=== PATIENT | female | born 1980 | race American Indian/Alaskan Native ===

== ENCOUNTER 2017-06-02 19:23 | Emergency (ER) | payer OTHER ==
[2017-06-02 19:52] VITALS: TEMP 98.4; O2SAT 98; BMI 37.5
--- NOTE | 2017-06-02 20:59 | ED PDOC ---
Arrival/HPI - General Chief Complaint: Lower Extremity Problem/Injury Time Seen by Provider: 06/02/17 19:49 Historian: Patient - History of Present Illness Narrative History of Present Illness (Text): 06/02/17 20:56 37 yo F with pmh of only HTN, reports of atraumatic constant achy type pain to the L calf radiating to the thigh x 1 week. Otherwise: (-) trauma, (-) chest pain, (-) dyspnea, (-) hemoptysis, (-) prior thromboembolic disease, (-) prolonged immobility or travel, (-) CHF, (-) known malignancy, (-) OCP use, (-) smoking. PMD Brenna Past Medical History - Provider Review Nursing Documentation Reviewed: Yes - Tetanus Immunization Tetanus Immunization: Unknown - Cardiac Hx Cardiac Disorders: Yes Hx Hypertension: Yes - Musculoskeletal/Rheumatological Hx Musculoskeletal Disorders: Yes (TORN RIGHT SHOULDER ROTATOR CUFF) - Genitourinary/Gynecological Hx Genitourinary Disorders: No - Psychiatric Hx Substance Use: No - Surgical History Other/Comment: ovarian cyst-REMOVED - Anesthesia Hx Anesthesia: Yes Hx Anesthesia Reactions: No Hx Malignant Hyperthermia: No - Suicidal Assessment Feels Threatened In Home Enviroment: No Family/Social History - Physician Review Nursing Documentation Reviewed: Yes Family/Social History: Unknown Family HX Smoking Status: Never Smoked Hx Alcohol Use: No Hx Substance Use: No Hx Substance Use Treatment: No Allergies/Home Meds Allergies/Adverse Reactions: Allergies No Known Allergies Allergy (Verified 08/20/14 13:39) Home Medications: Home Meds Medication Instructions Recorded Confirmed Benicar Hct 12.5 mg-20 mg 1 tab PO DAILY 11/04/13 06/02/17 Review of Systems - Review of Systems Constitutional: Normal. absent: Fatigue, Weight Change, Fevers Respiratory: Normal. absent: SOB, Cough, Sputum Cardiovascular: Normal. absent: Chest Pain, Palpitations, Edema Musculoskeletal: Normal, Other (leg pain). absent: Arthralgias, Back Pain, Neck Pain Skin: Normal. absent: Rash, Pruritis, Skin Lesions Physical Exam - Physical Exam Narrative Physical Exam (Text): 06/02/17 20:59 GENERAL APPEARANCE: Patient is awake, alert, oriented x 3, in no acute distress. SKIN: Warm, dry; (-) cyanosis; (-) rash. HEAD: (-) scalp swelling, (-) tenderness. EYES: (-) conjunctival pallor, (-) scleral icterus. ENMT: Pharynx: (-) erythema; airway patent: (-) stridor; mucous membranes moist. NECK: (-) tenderness, (-) stiffness, (-) lymphadenopathy, (-) thyromegaly. CHEST AND RESPIRATORY: (-) rales, (-) rhonchi, (-) wheezes, (-) pleural friction rub; breath sounds equal bilaterally. HEART AND CARDIOVASCULAR: (-) irregularity; (-) murmur, (-) gallop, (-) pericardial rub. ABDOMEN AND GI: Soft; (-) tenderness, (-) guarding, (-) rebound, (-) palpable masses, (-) CVA tenderness. EXTREMITIES: (-) swelling and tenderness with (-) distal edema, and (-) palpable cord. Opposite leg: wnl. Distal pulses: 2+. NEURO AND PSYCH: Mental status as above. Cranial nerves grossly intact; strength symmetric. Vital Signs Temp Pulse Resp BP Pulse Ox 06/02/17 21:21 75 18 144/86 98 06/02/17 19:52 98.4 F 78 16 146/98 H 98 Medical Decision Making ED Course and Treatment: 06/02/17 20:59 37 yo F with pmh of only HTN, reports of atraumatic constant achy type pain to the L calf radiating to the thigh x 1 week. Plan: -- Labs -- IV -- Reassess and disposition -- US doppler LLE 06/02/17 21:07 Labs reviewed : K 3.5. US duplex LLE : (-) DVT, as per US tech. On reevaluation, the patient is resting in bed comfortably in no acute distress. She has no additional complaints at this time. Patient given KCl 40 mEq by mouth for her mild hypokalemia. Diagnosis of muscle spasms discussed with the patient. Based on history, exam and diagnostic results plan will be for outpatient follow-up. Instructed to follow up with primary care physician in 1-2 days without fail. Advised to take otc motrin for pain. Return to the emergency room at any time for any new or worsening symptoms. Patient states she fully agrees with and understands discharge instructions. States that she agrees with the plan and disposition. Verbalized and repeated discharge instructions and plan. I have given the patient opportunity to ask any additional questions. - Lab Interpretations Lab Results: 06/02/17 20:45 06/02/17 20:45 Lab Results 06/02/17 20:45: Sodium 141, Potassium 3.5 L, Chloride 101, Carbon Dioxide 30, Anion Gap 14, BUN 18, Creatinine 0.8, Est GFR ( Amer) > 60, Est GFR (Non- Af Amer) > 60, Random Glucose 101, Calcium 9.0, Total Bilirubin 0.3, AST 45 H, ALT 29, Alkaline Phosphatase 69, Total Protein 7.7, Albumin 4.3, Globulin 3.4, Albumin/Globulin Ratio 1.3 06/02/17 20:45: PT 12.1, INR 1.11 H, APTT 32.1 06/02/17 20:45: WBC 9.1, RBC 4.45, Hgb 12.5, Hct 37.7, MCV 84.7, MCH 28.1, MCHC 33.2, RDW 14.5, Plt Count 376, MPV 9.5, Gran % 43.2 L, Lymph % (Auto) 48.2 H, [place] % (Auto) 5.8, Eos % (Auto) 2.2, Baso % (Auto) 0.6, Gran # 3.93, Lymph # 4.4 H, [place] # 0.5, Eos # 0.2, Baso # 0.05 - RAD Interpretation Radiology Orders: 06/02/17 20:32 DUPLEX LOWER EXTRM VEIN LEFT [US] Stat - Medication Orders Current Medication Orders: Discontinued Medications Potassium Chloride (Potassium Chloride Oral Soln) 40 meq PO STAT STA Stop: 06/02/17 21:09 - PA / CARDIAC REHAB NURSE / Resident Statement MD/DO has reviewed & agrees with the documentation as recorded. Disposition/Present on Arrival - Present on Arrival Any Indicators Present on Arrival: No History of DVT/PE: No History of Uncontrolled Diabetes: No Urinary Catheter: No History of Decub. Ulcer: No History Surgical Site Infection Following: None - Disposition Have Diagnosis and Disposition been Completed?: Yes Diagnosis: Pain of left calf Disposition: HOME/ ROUTINE Disposition Time: 21:45 Patient Plan: Discharge Patient Problems: Current Active Problems Problem Status Onset Pain of left calf Acute Condition: STABLE Discharge Instructions (ExitCare): Leg Cramps (ED) Print Language: GABONESE Additional Instructions: Thank you for letting us take care of you today. You were treated for L calf pain - likely muscle cramps/spams. The emergency medical care you received today was directed at your acute symptoms. If you were prescribed any medication , please fill it and take as directed. It may take several days for your symptoms to resolve. Return to the Emergency Department if your symptoms worsen , do not improve, or if you have any other problems. Please contact your doctor in 2 days for re-evaluation and follow up. Bring any paperwork you were given at discharge with you along with any medications you are taking to your follow up visit. Our treatment cannot replace ongoing medical care by a primary care provider (PCP) outside of the emergency department. Thank you for allowing the [facility] team to be part of your care today. Referrals: Suleiman Ugalde MD [Primary Care Provider] - Follow up with primary Forms: Cuciniale (Anguillan)
[2017-06-02 21:02] LABS: BASO # 0.05 K/mm3 (0.0-2.0); BASO % 0.6 % (0.0-3.0); EOS # 0.2 (0.0-0.7); EOS % 2.2 % (1.5-5.0); GRAN # 3.93 (1.4-6.5); GRAN % 43.2 % (50.0-68.0); HEMATOCRIT 37.7 % (36.0-48.0); LYMPH # 4.4 (1.2-3.4); LYMPH % 48.2 % (22.0-35.0); MEAN CELL VOLUME 84.7 fl (80.0-105.0); MEAN CORPUSCULAR HEMOGLOBIN 28.1 pg (25.0-35.0); MEAN CORPUSCULAR HGB CONC 33.2 g/dl (31.0-37.0); MEAN PLATELET VOLUME 9.5 fl (7.0-11.0); MONO # 0.5 (0.1-0.6); MONO % 5.8 % (1.0-6.0); RED CELL DISTRIBUTION WIDTH 14.5 % (11.5-14.5); WHITE BLOOD COUNT 9.1 10^3/ul (4.5-11.0)
[2017-06-02 21:04] LABS: ALB/GLOB RATIO 1.3 (1.1-1.8); ALKALINE PHOSPHATASE 69 U/L (38-126); ALT/SGPT 29 U/L (7-56); AST/SGOT 45 U/L (14-36); BILIRUBIN,TOTAL 0.3 mg/dL (0.2-1.3); BLOOD UREA NITROGEN 18 mg/dL (7-21); CARBON DIOXIDE 30 mmol/L (21-33); CHLORIDE 101 mmol/L (98-107); GFR AFRICAN-AMERICAN > 60; GLUCOSE,RANDOM 101 mg/dL (70-110); POTASSIUM 3.5 mmol/L (3.6-5.0); SODIUM 141 mmol/L (132-148); TOTAL PROTEIN 7.7 g/dL (5.8-8.3)
[2017-06-02 21:07] LABS: INR 1.11 (0.93-1.08); PARTIAL THROMBOPLASTIN TIME 32.1 Seconds (25.1-36.5)
[2017-06-02] MEDS ORDERED: Potassium Chloride 40 mEq/30 ml LIQ UD PO STA (21:08)
[2017-06-02 21:22] VITALS: BP 144/86; PULSE 75; RESP 18
--- NOTE | 2017-06-03 09:38 | US ---
PROCEDURE: Left lower extremity venous US HISTORY: Leg pain and swelling. Evaluate for DVT. PHYSICIAN(S): Kenton Brannon MD. TECHNIQUE: Duplex sonography and color-flow Doppler with graded compression were used to evaluate the deep venous system of the left lower extremity. FINDINGS: The visualized deep venous system of the left lower extremity is sonographically normal and compressible. Normal wave forms and augmentation are seen. There is no sonographic evidence for deep venous thrombosis in the visualized segments of the left lower extremity. IMPRESSION: 1. No sonographic evidence for deep venous thrombosis in the visualized segments of the left lower extremity.
== END 2017-06-02 22:01 | disposition home or self-care (01) ==
LOC: ED 19:23
DX: M79.662 Pain in left lower leg (principal)
CPT/HCPCS: 80053; 85025; 85610; 85730; 93971; 99284; J3480

== ENCOUNTER 2017-09-25 11:40 | Observation (INO) | payer OTHER ==
[2017-09-25 12:11] VITALS: BMI 38.2
--- NOTE | 2017-09-25 12:41 | ED PDOC ---
Arrival/HPI - General Chief Complaint: Abdominal Pain Time Seen by Provider: 09/25/17 12:28 Historian: Patient - History of Present Illness Narrative History of Present Illness (Text): 09/25/17 12:30 Elisa Ireland is a 37 year old female, whose past medical history includes hypertension, and ovarian cyst, who presents to the emergency department complaining of lower left abdominal pain and stool changes. Patient reports she has been constipated since 5 days ago and decided to take Ducalax 3 days ago. She reports persistent and increasing left lower quadrant abominal pain. Patient reports feeling gassy and has had no normal bowel movement since 6 days ago. Patient denies fever, cough, headache, shortness of breath, chest pain, back pain, dysuria, or other complaints. Patient notes her PMD prescribed her Amitiza, which had no significant relief. Denies fevers or chills. States she is currently having her menstrual period. 09/25/17 16:20 Time/Duration: 1 week Symptom Onset: Gradual Symptom Course: Worsening Quality: Gas Like Context: Home Past Medical History - Provider Review Nursing Documentation Reviewed: Yes - Infectious Disease Hx of Infectious Diseases: None - Tetanus Immunization Tetanus Immunization: Unknown - Cardiac Hx Cardiac Disorders: Yes Hx Hypertension: Yes - Musculoskeletal/Rheumatological Hx Musculoskeletal Disorders: Yes (TORN RIGHT SHOULDER ROTATOR CUFF) - Genitourinary/Gynecological Other/Comment: Fibroids - Psychiatric Hx Substance Use: No - Surgical History Hx Orthopedic Surgery: Yes (Right Shldr) Other/Comment: ovarian cyst-REMOVED. Fibriods removed. - Anesthesia Hx Anesthesia: Yes Hx Anesthesia Reactions: No Hx Malignant Hyperthermia: No - Suicidal Assessment Feels Threatened In Home Enviroment: No Family/Social History - Physician Review Nursing Documentation Reviewed: Yes Family/Social History: Unknown Family HX Smoking Status: Never Smoked Hx Alcohol Use: No Hx Substance Use: No Hx Substance Use Treatment: No Allergies/Home Meds Allergies/Adverse Reactions: Allergies No Known Allergies Allergy (Verified 09/25/17 12:19) Home Medications: Home Meds Medication Instructions Recorded Confirmed Benicar Hct 12.5 mg-20 mg 1 tab PO DAILY 11/04/13 06/02/17 Review of Systems - Review of Systems Constitutional: absent: Fevers ENT: absent: Rhinorrhea Respiratory: absent: SOB, Cough Cardiovascular: absent: Chest Pain Gastrointestinal: Abdominal Pain (lower left ), Stool Changes, Constipation, Diarrhea. absent: Hematochezia, Hematemesis Genitourinary Female: absent: Dysuria Musculoskeletal: absent: Back Pain Skin: absent: Skin Lesions Neurological: absent: Headache, Focal Weakness Endocrine: absent: Diaphoresis Hemo/Lymphatic: absent: Adenopathy Physical Exam - Physical Exam Narrative Physical Exam (Text): 09/25/17 Head: Atraumatic. Normocephalic. Eyes: PERRL. EOMI. Conjunctivae are not pale. ENT: Mucous membranes are moist and intact. Oropharynx is clear and symmetric. Neck: Supple. Full ROM. No JVD. No lymphadenopathy. Cardiovascular: Regular rate. Regular rhythm. No murmurs, rubs, or gallops. Distal pulses are 2+ and symmetric. Pulmonary/Chest: No evidence of respiratory distress. Clear to auscultation bilaterally. No wheezing, rales or rhonchi. Abdominal: (+) tenderness left lower quadrant region and suprapubic region. Localized rebound, no distension. No pulsatile masses. Back: No CVA tenderness. No midline tenderness. Extremities: No edema. No cyanosis. No clubbing. Full range of motion in all extremities. No calf tenderness. Skin: Skin is warm and dry. No petechiae. No purpura. Neurological: Alert, awake, and oriented to person, place, time, and situation. Normal speech. Motor and sensory exam intact. Psychiatric: Good eye contact. Normal interaction, affect, and behavior. 09/25/17 16:21 Vital Signs Reviewed: Yes Vital Signs Temp Pulse Resp BP Pulse Ox 09/25/17 14:03 74 18 126/68 98 09/25/17 12:09 98.8 F 18 126/80 Temperature: Afebrile Blood Pressure: Normal Pulse: Regular Respiratory Rate: Normal Appearance: Positive for: Non-Toxic, Comfortable, Uncomfortable Pain Distress: Moderate Mental Status: Positive for: Alert and Oriented X 3 Medical Decision Making ED Course and Treatment: 09/25/17 Impression: 37 year old female with (+) tenderness left lower quadrant region and suprapubic region complaining of abdominal pain and constipation since 5 days. Differential Diagnosis included but are not limited to: diverticulitis vs. UTI vs. ovarian cyst vs. menstrual cramps. Plan: -- CT abdomen -- Labs -- Urinalysis -- Reassess and disposition Progress Notes: Patient is noted to have significant focal left lower quadrant pain on palpation. She is tolerating po, afebrile. No nausea. CT abdomen/pelvis obtained due to exam of focal pain, by history for four to five days progressively worse. CT abdomen/pelvis results reviewed with patient, suggestive of diverticulitis. On re-exam, persistent pain on palpation. Based on severity of pain and ct reading, will admit for serial exams, iv antibiotics, gi consultation. PMD Dr. Suleiman Ugalde, will admit to Dr. Willams's service. Case d/w DR. Willams, accepts admission, will consult Dr. Pretty and Dr. Zaragoza. 09/25/17 16:26 - Lab Interpretations Lab Results: 09/25/17 12:59 09/25/17 12:59 Lab Results 09/25/17 12:59: Sodium 139, Potassium 3.4 L, Chloride 102, Carbon Dioxide 27, Anion Gap 14, BUN 14, Creatinine 0.7, Est GFR ( Amer) > 60, Est GFR (Non- Af Amer) > 60, Random Glucose 96, Calcium 9.4, Total Bilirubin 0.4, AST 18, ALT 23, Alkaline Phosphatase 72, Total Protein 7.4, Albumin 3.8, Globulin 3.5, Albumin/Globulin Ratio 1.1 09/25/17 12:59: Urine Color Light red, Urine Appearance Cloudy, Urine pH 6.5, Ur Specific [place] 1.025, Urine Protein 100 H, Urine Glucose (UA) 100 H, Urine Ketones 15 H, Urine Blood Large H, Urine Nitrate Positive H, Urine Bilirubin Negative, Urine Urobilinogen 1.0 H, Ur Leukocyte Esterase Trace H, Urine RBC Tntc, Urine WBC 5 - 10, Ur Epithelial Cells 4 - 5, Amorphous Sediment Few, Urine Bacteria Many, Urine Other Fiber, Urine HCG, Qual Negative 09/25/17 12:59: WBC 8.2, RBC 4.18, Hgb 11.7 L, Hct 35.6 L, MCV 85.2, MCH 28.0, MCHC 32.9, RDW 14.4, Plt Count 314, MPV 9.5, Gran % 60.0, Lymph % (Auto) 30.3, [place] % (Auto) 7.8 H, Eos % (Auto) 1.7, Baso % (Auto) 0.2, Gran # 4.92, Lymph # ( Auto) 2.5, [place] # (Auto) 0.6, Eos # (Auto) 0.1, Baso # (Auto) 0.02 I have reviewed the lab results: Yes - RAD Interpretation Radiology Orders: 09/25/17 12:40 ABD PELVIS PO & IV CONTRAST [CT] Stat Insole Coverer: Radiologist - Medication Orders Current Medication Orders: Sodium Chloride (Sodium Chloride 0.9%) 1,000 mls @ 100 mls/hr IV .Q10H LYDIA Ceftriaxone Sodium (Rocephin 1 Gram Ivpb) 1 gm in 100 mls @ 200 mls/hr IVPB ONCE STA PRN Reason: Protocol Stop: 09/25/17 16:25 Metronidazole (Flagyl) 500 mg in 100 mls @ 100 mls/hr IVPB STAT STA PRN Reason: Protocol Stop: 09/25/17 16:56 Discontinued Medications Potassium Chloride (K-Dur 20 Meq Er Tab) 20 meq PO STAT STA Stop: 09/25/17 13:33 Last Admin: 09/25/17 14:11 Dose: 20 meq - Scribe Statement The provider has reviewed the documentation as recorded by the Lisbet Billy Provider Scribe Attestation: All medical record entries made by the Lisbet were at my direction and personally dictated by me. I have reviewed the chart and agree that the record accurately reflects my personal performance of the history, physical exam, medical decision making, and the department course for this patient. I have also personally directed, reviewed, and agree with the discharge instructions and disposition. Disposition/Present on Arrival - Present on Arrival Any Indicators Present on Arrival: No History of DVT/PE: No History of Uncontrolled Diabetes: No Urinary Catheter: No History of Decub. Ulcer: No History Surgical Site Infection Following: None - Disposition Have Diagnosis and Disposition been Completed?: Yes Diagnosis: Acute diverticulitis, Abdominal pain Disposition: HOSPITALIZED Disposition Time: 15:45 Patient Plan: Admission Condition: FAIR Forms: Formarum (Armenian)
[2017-09-25] MEDS ORDERED: Iohexol 240 (50 ml) ONE (12:52)
[2017-09-25 13:11] LABS: BASO # 0.02 K/mm3 (0.0-2.0); BASO % 0.2 % (0.0-3.0); EOS # 0.1 (0.0-0.7); EOS % 1.7 % (1.5-5.0); GRAN # 4.92 (1.4-6.5); HEMOGLOBIN 11.7 g/dL (12.0-16.0); LYMPH # 2.5 (1.2-3.4); LYMPH % 30.3 % (22.0-35.0); MEAN CELL VOLUME 85.2 fl (80.0-105.0); MEAN CORPUSCULAR HGB CONC 32.9 g/dl (31.0-37.0); MEAN PLATELET VOLUME 9.5 fl (7.0-11.0); MONO # 0.6 (0.1-0.6); MONO % 7.8 % (1.0-6.0); RBC 4.18 10^6/uL (3.5-6.1); RED CELL DISTRIBUTION WIDTH 14.4 % (11.5-14.5); WHITE BLOOD COUNT 8.2 10^3/ul (4.5-11.0)
[2017-09-25 13:15] LABS: PH,URINE 6.5 (4.7-8.0); URINE APPEARANCE CLOUDY (CLEAR); URINE BILIRUBIN NEGATIVE (NEGATIVE); URINE BLOOD LARGE (NEGATIVE); URINE COLOR LIGHT RED (YELLOW); URINE GLUCOSE (UA) 100 mg/dL (NEGATIVE); URINE LEUKOCYTE ESTERASE TRACE Leu/uL (NEGATIVE); URINE NITRATE POSITIVE (NEGATIVE); URINE PROTEIN 100 mg/dL (<30 mg/dL)
[2017-09-25 13:16] LABS: HCG,QUALITATIVE URINE NEGATIVE (NEGATIVE)
[2017-09-25 13:22] LABS: ALB/GLOB RATIO 1.1 (1.1-1.8); ALBUMIN 3.8 g/dL (3.0-4.8); ALT/SGPT 23 U/L (7-56); AST/SGOT 18 U/L (14-36); BLOOD UREA NITROGEN 14 mg/dL (7-21); CALCIUM 9.4 mg/dL (8.4-10.5); GFR AFRICAN-AMERICAN > 60; GFR NON-AFRICAN AMERICAN > 60
[2017-09-25] MEDS ORDERED: Potassium Chloride 20 mEq ER Tab PO STA (13:32)
[2017-09-25 13:33] LABS: URINE RBC TNTC /hpf (0-2)
[2017-09-25 13:34] LABS: URINE AMORPHOUS SEDIMENT FEW; URINE BACTERIA MANY (NEG)
[2017-09-25] MEDS ORDERED: Iohexol 350 MG/100 ML VIAL ONE (14:01)
--- NOTE | 2017-09-25 15:40 | CT ---
PROCEDURE: CT Abdomen and Pelvis with contrast HISTORY: llq abdominal pain COMPARISON: None. TECHNIQUE: Contrast dose: Omnipaque 350, 100 cc. Radiation dose: Total exam DLP = 1040.99 mGy-cm. This CT exam was performed using one or more of the following dose reduction techniques: Automated exposure control, adjustment of the mA and/or kV according to patient size, and/or use of iterative reconstruction technique. FINDINGS: LOWER THORAX: Cardiomegaly is noted. No definite pleural or pericardial effusion identified. LIVER: Unremarkable. No gross lesion or ductal dilatation. GALLBLADDER AND BILE DUCTS: Unremarkable. PANCREAS: Unremarkable. No gross lesion or ductal dilatation. SPLEEN: Unremarkable. ADRENALS: Unremarkable. No mass. KIDNEYS AND URETERS: Unremarkable. No hydronephrosis. No solid mass. VASCULATURE: Unremarkable. No aortic aneurysm. BOWEL: The stomach is partially collapsed with limited residual fluid and air in the lumen. The bowel is not appear obstructed and opacified small bowel is unremarkable. However, there is thickening of the proximal to mid sigmoid colon with local reactive changes associated in the pericolic space. Trace pericolic fluid is seen inferiorly and extends into the pelvis mildly. Sigmoid diverticular changes seen not only associated with the thickened sigmoid segment also through the distal segment. Overall, the pattern likely reflects sigmoid diverticulitis though other completed these are not completely excluded. Inflammatory or ischemic etiologies are not completely excluded. Clinically correlate following therapy for potential underlying lesion. . APPENDIX: Normal appendix. PERITONEUM: Trace fluid left pericolic gutter and pelvis dependent intraperitoneal space as discussed above in bowel section. LYMPH NODES: Unremarkable. No enlarged lymph nodes. BLADDER: Unremarkable. REPRODUCTIVE: Heterogeneous and somewhat lobular enhancing the uterus suggests underlining uterine fibroid disease. BONES: No acute fracture. OTHER FINDINGS: None. IMPRESSION: 1. Findings most compatible with sigmoid diverticulitis affecting the proximal to mid sigmoid colon. No abscess or prominent free intraperitoneal gas though limited left pericolic and pelvic fluid is seen. Please see differential diagnosis above. Underlying lesion not excluded. 2. Uterine fibroid disease suggested. 3. Incidental cardiomegaly noted.
[2017-09-25] MEDS ORDERED: cefTRIAXone 1 gm 1 GM/100 ML BAG IVPB STA (15:56)
[2017-09-25] MEDS ORDERED: metroNIDAZOLE IV 500 mg/100 ml 500 MG/100 ML BAG IVPB STA (15:57)
[2017-09-25] MEDS ORDERED: Sodium Chloride 0.9% 1,000 ML IV SCH (16:00)
[2017-09-25] MEDS ORDERED: HYDROmorphone 0.5 mg/0.5 ml ISec IVP PRN (20:04)
--- NOTE | 2017-09-25 20:45 | CP.PCM.CON ---
History of Present Illness - History of Present Illness History of Present Illness: Surgery Consult note. Dr. Zaragoza 37yo F with HTN, Ovarian Cyst, Uterine Fibroids here for evaluation of abdominal pain. Pain started 5 days ago, located in the LLQ. Described as crampy , gassy type of pain. Patient reports being constipated recently and took laxitive 4 days ago for relief, and started having diarrhea for the past 4 days , multiple times per day. She reports liquid brown stool. Denies any hematochezia. She went to see her PMD yesterday and was prescribed Amitiza, which she took one dose with no relief of symptoms. Today, she felt weak and continued to have diarrhea and LLQ abdominal pain and decided to come in for further evaluation. She reports that the LLQ pain has been persistent over the past 5 days, and she would obtain mild relief after having a loose BM, and then the pain would return a few hours later with another urge to defecate. She denies any N/V. No F/C. No CP/SOB. No Headaches. No Dizziness. No urinary changes. Never has had similar symptoms in the past. She is currently on her menstrual cycle, began yesterday. PMD: Dr. 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 absent: Chills, Fever - EENT Ears: absent: Dizziness - Cardiovascular Cardiovascular: absent: Chest Pain, Dyspnea - Respiratory Respiratory: absent: Dyspnea - Gastrointestinal Gastrointestinal: Abdominal Pain, Constipation, Diarrhea. absent: Hematochezia , Nausea, Vomiting - Genitourinary Genitourinary: absent: Difficulty Urinating, Dysuria - Musculoskeletal Musculoskeletal: absent: Back Pain Past Patient History - Infectious Disease Hx of Infectious Diseases: None - Tetanus Immunizations Tetanus Immunization: Unknown - Past Medical History & Family History Past Medical History?: Yes Past Family History: Reviewed and not pertinent - Past Social History Smoking Status: Never Smoked - CARDIAC Hx Cardiac Disorders: Yes Hx Hypertension: Yes - MUSCULOSKELETAL/RHEUMATOLOGICAL Hx Musculoskeletal Disorders: Yes (TORN RIGHT SHOULDER ROTATOR CUFF) - GENITOURINARY/GYNECOLOGICAL Other/Comment: Fibroids - PSYCHIATRIC Hx Substance Use: No - SURGICAL HISTORY Hx Orthopedic Surgery: Yes (Right Shldr) Other/Comment: ovarian cyst-REMOVED. Fibriods removed. - ANESTHESIA Hx Anesthesia: Yes Hx Anesthesia Reactions: No Hx Malignant Hyperthermia: No Meds Allergies/Adverse Reactions: Allergies Allergy/AdvReac Type Severity Reaction Status Date / Time No Known Allergies Allergy Verified 09/25/17 12:19 - Medications Medications: Current Medications Hydromorphone HCl (Dilaudid) 0.5 mg IVP Q4H PRN PRN Reason: Pain, Mild (1-3) Sodium Chloride (Sodium Chloride 0.9%) 1,000 mls @ 100 mls/hr IV .Q10H LYDIA Last Admin: 09/25/17 17:07 Dose: 100 mls/hr Metronidazole (Flagyl) 500 mg in 100 mls @ 100 mls/hr IVPB Q8 LYDIA PRN Reason: Protocol Ceftriaxone Sodium (Rocephin 1 Gram Ivpb) 1 gm in 100 mls @ 100 mls/hr IVPB DAILY LYDIA PRN Reason: Protocol Pantoprazole Sodium (Protonix Inj) 40 mg IVP DAILY LYDIA Physical Exam - Constitutional Appears: Well, Non-toxic, No Acute Distress - Head Exam Head Exam: ATRAUMATIC, NORMAL INSPECTION, NORMOCEPHALIC - Eye Exam Eye Exam: EOMI, Normal appearance. absent: Scleral icterus - ENT Exam ENT Exam: Mucous Membranes Moist - Neck Exam Neck exam: Positive for: Normal Inspection - Respiratory Exam Respiratory Exam: Clear to Auscultation Bilateral, NORMAL BREATHING PATTERN. absent: Accessory Muscle Use, Wheezes, Respiratory Distress - GI/Abdominal Exam GI & Abdominal Exam: Normal Bowel Sounds, Soft. absent: Distended, Firm, Guarding, Rebound, Rigid Additional comments: Tender to palpation LLQ. No rebound. No guarding. Nondistended - Rectal Exam Rectal Exam: Deferred - Extremities Exam Extremities exam: Positive for: normal inspection. Negative for: calf tenderness - Back Exam Back exam: NORMAL INSPECTION - Neurological Exam Neurological exam: Alert, CN II-XII Intact, Normal Gait, Oriented x3 - Psychiatric Exam Psychiatric exam: Normal Affect, Normal Mood - Skin Skin Exam: Dry, Intact, Normal Color, Warm Results - Vital Signs Recent Vital Signs: Last Vital Signs Temp 98.8 F 09/25/17 12:09 Pulse 76 09/25/17 18:42 Resp 18 09/25/17 18:42 BP 129/77 09/25/17 18:42 Pulse Ox 98 09/25/17 18:42 - Labs Result Diagrams: 09/25/17 12:59 09/25/17 12:59 Assessment & Plan - Assessment and Plan (Free Text) Assessment: 37yo F with acute diverticulitis - CT scan noted - No leukocytosis. VSS Plan: - CLD for now - IVF - Continue IV Abx - Strict I&Os - Serial Abd exams Further recs as per Dr. Nik Acevedo PGY1 surgery pager: [phone]
[2017-09-25 22:29] VITALS: O2SAT 100
[2017-09-25] MEDS: metroNIDAZOLE IV 500 mg/100 ml 500 MG/100 ML BAG IVPB SCH (22:39)
[2017-09-26] MEDS ORDERED: Acetaminophen 650mg/20.3ml solution UD PO PRN (00:16)
[2017-09-26 07:05] LABS: BASO # 0.03 K/mm3 (0.0-2.0); BASO % 0.5 % (0.0-3.0); EOS # 0.1 (0.0-0.7); EOS % 2.2 % (1.5-5.0); GRAN # 3.81 (1.4-6.5); GRAN % 58.4 % (50.0-68.0); HEMOGLOBIN 10.6 g/dL (12.0-16.0); LYMPH # 2.1 (1.2-3.4); LYMPH % 32.1 % (22.0-35.0); MEAN CELL VOLUME 84.5 fl (80.0-105.0); MEAN CORPUSCULAR HEMOGLOBIN 26.9 pg (25.0-35.0); MEAN CORPUSCULAR HGB CONC 31.8 g/dl (31.0-37.0); MEAN PLATELET VOLUME 9.7 fl (7.0-11.0); MONO # 0.4 (0.1-0.6); MONO % 6.8 % (1.0-6.0); RBC 3.94 10^6/uL (3.5-6.1); RED CELL DISTRIBUTION WIDTH 14.2 % (11.5-14.5); WHITE BLOOD COUNT 6.5 10^3/ul (4.5-11.0)
[2017-09-26 07:34] LABS: IRON 50 ug/dL (45-180)
[2017-09-26 07:44] LABS: LDL CHOLESTEROL 115 mg/dL (0-129)
[2017-09-26 07:45] LABS: % IRON SATURATION 18 % (20-55); TOTAL IRON BINDING CAPACITY 278 ug/dL (265-497)
[2017-09-26 07:54] LABS: ALBUMIN 3.4 g/dL (3.0-4.8); ALT/SGPT 18 U/L (7-56); AST/SGOT 22 U/L (14-36); BLOOD UREA NITROGEN 11 mg/dL (7-21); CALCIUM 8.7 mg/dL (8.4-10.5); GFR AFRICAN-AMERICAN > 60; GFR NON-AFRICAN AMERICAN > 60; HDL CHOLESTEROL 44 mg/dL (29-60)
[2017-09-26 08:09] VITALS: BP 103/57; PULSE 64; RESP 16; TEMP 99
[2017-09-26] MEDS: metroNIDAZOLE IV 500 mg/100 ml 500 MG/100 ML BAG IVPB SCH (08:27)
--- NOTE | 2017-09-26 09:31 | CP.PCM.PN ---
Subjective - Date & Time of Evaluation Date of Evaluation: 09/26/17 Time of Evaluation: 09:27 - Subjective Subjective: General surgery progress note for Dr. Zaragoza Patient seen and examined at bedside. Patient has mild RLQ and LLQ tenderness. Discussed detention plan with patient, she expressed understanding. Denies fevers, chills, chest pain, shortness of breath. Objective - Vital Signs/Intake and Output Vital Signs (last 24 hours): Temp Pulse Resp BP Pulse Ox 99 F 64 16 103/57 L 100 09/26/17 08:08 09/26/17 08:08 09/26/17 08:08 09/26/17 08:08 09/26/17 08:08 Intake and Output: 09/26/17 09/26/17 06:59 18:59 Intake Total 240 Balance 240 - Medications Medications: Current Medications Acetaminophen (Tylenol 650mg/20.3ml Solution Ud) 650 mg PO Q4H PRN PRN Reason: Pain, moderate (4-7) Last Admin: 09/26/17 00:28 Dose: 650 mg Sodium Chloride (Sodium Chloride 0.9%) 1,000 mls @ 100 mls/hr IV .Q10H LYDIA Last Admin: 09/25/17 17:07 Dose: 100 mls/hr Metronidazole (Flagyl) 500 mg in 100 mls @ 100 mls/hr IVPB Q8 LYDIA PRN Reason: Protocol Last Admin: 09/26/17 08:27 Dose: 100 mls/hr Ceftriaxone Sodium (Rocephin 1 Gram Ivpb) 1 gm in 100 mls @ 100 mls/hr IVPB DAILY LYDIA PRN Reason: Protocol Pantoprazole Sodium (Protonix Inj) 40 mg IVP DAILY LYDIA Tramadol HCl (Ultram) 50 mg PO TID PRN PRN Reason: Pain, moderate (4-7) - Labs Labs: 09/26/17 06:30 09/26/17 06:30 - Constitutional Appears: Well - Head Exam Head Exam: ATRAUMATIC, NORMAL INSPECTION, NORMOCEPHALIC - Eye Exam Eye Exam: EOMI, Normal appearance, PERRL Pupil Exam: NORMAL ACCOMODATION, PERRL - ENT Exam ENT Exam: Mucous Membranes Moist, Normal Exam - Neck Exam Neck Exam: Full ROM, Normal Inspection. absent: Lymphadenopathy - Respiratory Exam Respiratory Exam: Clear to Ausculation Bilateral, NORMAL BREATHING PATTERN - Cardiovascular Exam Cardiovascular Exam: REGULAR RHYTHM, +S1, +S2. absent: Murmur - GI/Abdominal Exam GI & Abdominal Exam: Soft, Normal Bowel Sounds. absent: Tenderness Additional comments: Tender to palpation LLQ. No rebound. No guarding. Nondistended - Extremities Exam Extremities Exam: Full ROM, Normal Capillary Refill, Normal Inspection. absent : Joint Swelling, Pedal Edema - Back Exam Back Exam: NORMAL INSPECTION - Neurological Exam Neurological Exam: Alert, Awake, CN II-XII Intact, Normal Gait, Oriented x3 - Psychiatric Exam Psychiatric exam: Normal Affect, Normal Mood - Skin Skin Exam: Dry, Intact, Normal Color, Warm Assessment and Plan - Assessment and Plan (Free Text) Assessment: 37yo F with acute diverticulitis, first episode. CT scan noted, No leukocytosis , VSS Plan: - Advance diet as tolerated - advanced to full liquid - IVF - Continue IV Abx - Strict I&Os - Serial Abd exams - Recs per GI - Further recs per Dr. Zaragoza
[2017-09-26] MEDS ORDERED: cefTRIAXone 1 gm 1 GM/100 ML BAG IVPB SCH (10:00)
[2017-09-26 12:34] LABS: FOLATE > 20.0 ng/mL
--- NOTE | 2017-09-26 13:47 | HP ---
CHIEF COMPLAINT: Abdominal pain. HISTORY OF PRESENT ILLNESS: Ms. Elisa Ireland is a 37-year-old female with past medical history of hypertension, ovarian cyst, came to the emergency department complaining of lower left abdominal pain and stool changes. The patient reports she had been constipated since 5 days ago and decided to take Dulcolax 3 days ago. She reports persistent and left lower quadrant abdominal pain. Patient reports feeling gassy and has no normal bowel movement since 6 days. The patient denies any fever, cough, headache, nausea, vomiting, diarrhea, hematuria, or hematochezia. No fever, no chills. PAST MEDICAL HISTORY: As above, hypertension, torn right shoulder rotator cuff, fibroids. FAMILY HISTORY: Father and mother, noncontributory. HABITS: Never smoked, no drugs, no ethanol. ALLERGIES: PATIENT NOT ALLERGIC TO ANY MEDICATIONS. HOME MEDICATIONS: Benicar. REVIEW OF SYSTEMS: Patient is seen and examined the bedside in the emergency room, looking comfortable. No nausea, vomiting diarrhea, hematuria, or hematochezia. Having abdominal pain in left lower quadrant and stool changes. No hematuria, no hematochezia, no dysuria, no back pain, no skin lesions, no headache, no focal weakness. PHYSICAL EXAMINATION: VITAL SIGNS: Temperature is 98.8, pulse 74, respiratory rate 18, blood pressure 126/80, and pulse oximetry 98%. HEENT: Head: Normocephalic, atraumatic. Eyes: PERRLA, extraocular movements are intact, conjunctivae are clear. Nose: Patent. Mucous membranes are moist. NECK: Supple. No carotid bruit. No JVD or thyromegaly. CHEST: Bilaterally symmetrical. HEART: S1 and S2 positive. LUNGS: Clear to auscultation. ABDOMEN: Soft. Bowel sounds are present. No organomegaly. EXTREMITIES: No edema. No cyanosis. NEUROLOGIC: Patient is awake and alert, moving all four extremities with no focal deficit. LABORATORY DATA: White blood cells 6.2, hemoglobin 11.7, hematocrit 35.6, and platelets 314. Sodium 139, potassium 3.4. BUN 14, creatinine 0.7. Glucose 96. ASSESSMENT AND PLAN: Ms. Elisa Ireland is a 37-year-old female with anemia; hypokalemia, replaced; abdominal pain; diverticulitis, acute; history of hypertension; ovarian cyst. Recently, the patient was started on metronidazole and Rocephin. IV fluid given. Pain management done. History of uterine fibroids. CT scan noted, no leukocytosis, IV fluid, strict O's and I's, exams. Gastrointestinal and deep venous thrombosis prophylaxis. Repeat labs. We will follow up. Inessa Willams MD MTDD
--- NOTE | 2017-09-26 16:23 | CP.PCM.CON ---
<Jody Jones - Last Filed: 09/26/17 16:23> History of Present Illness - History of Present Illness History of Present Illness: Seen and examined at the bedside earlier this morning, chart reviewed. Request for GI consult is for abdominal pain/diverticulitis. HPI: This is a 37-year-old obese female with a past medical history of hypertension, uterine fibroids and ovarian cyst. Came to the emergency room with complaints of left lower quadrant abdominal pain, described as crampy gassy type pain. The patient reported having abdominal pain over 5 days. The patient recalls eating peanuts and popcorn, she complained of being constipated. She took Dulcolax with some relief then started having diarrhea the past 4 days. No reports of GI bleeding, the patient reported seeing her PCP other day and was given Amitiza. She did take a dose with no relief. she came to the hospital for further evaluation. The patient denies any nausea, vomiting, fever or chills. On admission she had a CT scan of abdomen and pelvis with IV and oral contrast and found to have sigmoid diverticulitis with no abscess or free air but also noted to have left pericolic and pelvic fluid, underlying lesion is not excluded. Also noted to have uterine fibroid disease. This morning the patient still has abdominal pain but reports some improvement she does not want to stay in the hospital for treatment, denies endoscopy or colonoscopy. 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 [employer] Medications: Reviewed as per MAR ROS: Systems reviewed with positive findings the HPI Past Patient History - Infectious Disease Hx of Infectious Diseases: None - Tetanus Immunizations Tetanus Immunization: Unknown - Past Medical History & Family History Past Medical History?: Yes Past Family History: Reviewed and not pertinent - Past Social History Smoking Status: Never Smoked - CARDIAC Hx Cardiac Disorders: Yes Hx Hypertension: Yes - MUSCULOSKELETAL/RHEUMATOLOGICAL Hx Musculoskeletal Disorders: Yes (TORN RIGHT SHOULDER ROTATOR CUFF) Hx Falls: No - GENITOURINARY/GYNECOLOGICAL Other/Comment: Fibroids - PSYCHIATRIC Hx Substance Use: No - SURGICAL HISTORY Hx Orthopedic Surgery: Yes (Right Shldr) Other/Comment: ovarian cyst-REMOVED. Fibriods removed. - ANESTHESIA Hx Anesthesia: Yes Hx Anesthesia Reactions: No Hx Malignant Hyperthermia: No Meds Allergies/Adverse Reactions: Allergies Allergy/AdvReac Type Severity Reaction Status Date / Time No Known Allergies Allergy Verified 09/25/17 12:19 Physical Exam - Constitutional Appears: No Acute Distress - Head Exam Head Exam: NORMOCEPHALIC - Eye Exam Eye Exam: Normal appearance. absent: Scleral icterus - ENT Exam ENT Exam: Mucous Membranes Moist - Neck Exam Neck exam: Positive for: Normal Inspection - Respiratory Exam Respiratory Exam: Clear to Auscultation Bilateral, NORMAL BREATHING PATTERN. absent: Respiratory Distress - Cardiovascular Exam Cardiovascular Exam: +S1, +S2 - GI/Abdominal Exam GI & Abdominal Exam: Normal Bowel Sounds, Soft, Tenderness (LLQ). absent: Guarding, Rebound - Extremities Exam Extremities exam: Positive for: pedal pulses present. Negative for: calf tenderness, pedal edema - Neurological Exam Neurological exam: Alert, CN II-XII Intact, Oriented x3 - Skin Skin Exam: Dry, Warm Results - Vital Signs Recent Vital Signs: Last Vital Signs Temp 99 F 09/26/17 08:08 Pulse 64 09/26/17 08:08 Resp 16 09/26/17 08:08 BP 103/57 L 09/26/17 08:08 Pulse Ox 100 09/26/17 08:08 - Labs Result Diagrams: 09/26/17 06:30 09/26/17 06:30 Labs: Laboratory Results - last 24 hr 09/26/17 09/26/17 09/26/17 06:30 06:30 06:30 WBC 6.5 D RBC 3.94 Hgb 10.6 L Hct 33.3 L MCV 84.5 MCH 26.9 MCHC 31.8 RDW 14.2 Plt Count 301 MPV 9.7 Gran % 58.4 Lymph % (Auto) 32.1 [place] % (Auto) 6.8 H Eos % (Auto) 2.2 Baso % (Auto) 0.5 Gran # 3.81 Lymph # (Auto) 2.1 [place] # (Auto) 0.4 Eos # (Auto) 0.1 Baso # (Auto) 0.03 Sodium 140 Potassium 3.3 L Chloride 106 Carbon Dioxide 24 Anion Gap 13 BUN 11 Creatinine 0.7 Est GFR ( Amer) > 60 Est GFR (Non-Af Amer) > 60 Random Glucose 95 Hemoglobin A1c Calcium 8.7 Iron 50 TIBC 278 % Saturation 18 L Total Bilirubin 0.5 AST 22 ALT 18 Alkaline Phosphatase 60 Total Protein 6.8 Albumin 3.4 Globulin 3.4 Albumin/Globulin Ratio 1.0 L Triglycerides 58 Cholesterol 177 LDL Cholesterol Direct 115 HDL Cholesterol 44 Vitamin B12 579 Folate > 20.0 09/26/17 06:30 WBC RBC Hgb Hct MCV MCH MCHC RDW Plt Count MPV Gran % Lymph % (Auto) [place] % (Auto) Eos % (Auto) Baso % (Auto) Gran # Lymph # (Auto) [place] # (Auto) Eos # (Auto) Baso # (Auto) Sodium Potassium Chloride Carbon Dioxide Anion Gap BUN Creatinine Est GFR ( Amer) Est GFR (Non-Af Amer) Random Glucose Hemoglobin A1c 5.6 Calcium Iron TIBC % Saturation Total Bilirubin AST ALT Alkaline Phosphatase Total Protein Albumin Globulin Albumin/Globulin Ratio Triglycerides Cholesterol LDL Cholesterol Direct HDL Cholesterol Vitamin B12 Folate Assessment & Plan - Assessment and Plan (Free Text) Assessment: Assessment: Acute diverticulitis, no abscess or free air Morbid obesity Uterine fibroid disease Morbid obesity Hypertension Plan: On IV antibiotics of Flagyl and Rocephin On clear liquid diet Patient requesting to go home, does not want to wait for PCP patient is going AMA, discuss with patient patient that she needs to be on antibiotic therapy, patients states that she is going straight to her PCPs office from the hospital , Dr. Naveed Ugalde also discussed with patient that she would benefit from colonoscopy evaluation at least 6-8 weeks once diverticulitis improves for further evaluation of colon and make sure no maligancy, discussed with patient to take clear liquid diet and to slowly increase diet and to low residual diet and to slowly increase fiber. Patient was also told to return to the emergency room if she develops any acute onset of fever or sudden/increase abdominal pain. Patient stated understanding. Patient was also told to avoid laxatives and Amitiza at this times. Seen and discussed w/ Dr. Pretty. <Gaby Pretty V - Last Filed: 09/27/17 01:56> Results - Vital Signs Recent Vital Signs: Last Vital Signs Temp 99 F 09/26/17 08:08 Pulse 64 09/26/17 08:08 Resp 16 09/26/17 08:08 BP 103/57 L 09/26/17 08:08 Pulse Ox 100 09/26/17 08:08 - Labs Result Diagrams: 09/26/17 06:30 09/26/17 06:30 Labs: Laboratory Results - last 24 hr 09/26/17 09/26/17 09/26/17 06:30 06:30 06:30 WBC 6.5 D RBC 3.94 Hgb 10.6 L Hct 33.3 L MCV 84.5 MCH 26.9 MCHC 31.8 RDW 14.2 Plt Count 301 MPV 9.7 Gran % 58.4 Lymph % (Auto) 32.1 [place] % (Auto) 6.8 H Eos % (Auto) 2.2 Baso % (Auto) 0.5 Gran # 3.81 Lymph # (Auto) 2.1 [place] # (Auto) 0.4 Eos # (Auto) 0.1 Baso # (Auto) 0.03 Sodium 140 Potassium 3.3 L Chloride 106 Carbon Dioxide 24 Anion Gap 13 BUN 11 Creatinine 0.7 Est GFR ( Amer) > 60 Est GFR (Non-Af Amer) > 60 Random Glucose 95 Hemoglobin A1c Calcium 8.7 Iron 50 TIBC 278 % Saturation 18 L Total Bilirubin 0.5 AST 22 ALT 18 Alkaline Phosphatase 60 Total Protein 6.8 Albumin 3.4 Globulin 3.4 Albumin/Globulin Ratio 1.0 L Triglycerides 58 Cholesterol 177 LDL Cholesterol Direct 115 HDL Cholesterol 44 Vitamin B12 579 Folate > 20.0 09/26/17 06:30 WBC RBC Hgb Hct MCV MCH MCHC RDW Plt Count MPV Gran % Lymph % (Auto) [place] % (Auto) Eos % (Auto) Baso % (Auto) Gran # Lymph # (Auto) [place] # (Auto) Eos # (Auto) Baso # (Auto) Sodium Potassium Chloride Carbon Dioxide Anion Gap BUN Creatinine Est GFR ( Amer) Est GFR (Non-Af Amer) Random Glucose Hemoglobin A1c 5.6 Calcium Iron TIBC % Saturation Total Bilirubin AST ALT Alkaline Phosphatase Total Protein Albumin Globulin Albumin/Globulin Ratio Triglycerides Cholesterol LDL Cholesterol Direct HDL Cholesterol Vitamin B12 Folate Attending/Attestation - Attestation I have personally seen and examined this patient.: Yes I have fully participated in the care of the patient.: Yes I have reviewed all pertinent clinical information: Yes Notes (Text): This is an addendum to GI consult report dictated by Jody Jones APN.The patient was seen and examined earlier. Medical records, lab studies, imagings were reviewed. Last 24 hours events reviewed. Agreed with the above treatment plan as outlined in Jody Jones APN's notes the with the addition of the following 09/27/17 01:56
--- NOTE | 2017-09-26 16:46 | CP.PCM.PCO ---
Physician Communication Note - Physician Communication Note Physician Communication Note: Pt AMA-nery Miralax/PO Ab
== END 2017-09-26 11:04 | disposition left against medical advice (07) ==
LOC: ED 11:40 → ERH 16:18 → 5RNO 22:45
PROVIDERS: ADMIT Internal Medicine; ATTEND Internal Medicine
DX: K57.92 Diverticulitis of intestine, part unspecified, without perforation or abscess without bleeding (principal); K59.00 Constipation, unspecified; D64.9 Anemia, unspecified; E87.6 Hypokalemia; I10 Essential (primary) hypertension; N83.209 Unspecified ovarian cyst, unspecified side; E66.01 Morbid (severe) obesity due to excess calories; Z68.38 Body mass index [BMI] 38.0-38.9, adult; D25.9 Leiomyoma of uterus, unspecified
CPT/HCPCS: 36415; 74177; 80053; 80061; 81001; 82607; 82746; 83036; 83540; 83550; 84703; 85025; 96365; 96366; 96367; 96376; 99284; G0378; J0696; J7040; Q9966; Q9967

== ENCOUNTER 2017-09-30 21:08 | Inpatient (IN) | payer OTHER ==
[2017-09-30 21:08] VITALS: BMI 38.2
[2017-09-30] MEDS ORDERED: Morphine 4 mg/ml ISec IVP STA (22:03)
--- NOTE | 2017-09-30 22:05 | ED PDOC ---
Arrival/HPI - General Historian: Patient - History of Present Illness Time/Duration: Other (see hpi) Context: Home <Sarah Minor - Last Filed: 10/01/17 00:05> <Dmitry Roca - Last Filed: 10/01/17 00:26> - General Chief Complaint: Abdominal Pain Time Seen by Provider: 09/30/17 21:46 - History of Present Illness Narrative History of Present Illness (Text): 09/30/17 22:03 HPI: This is a 37-year-old obese female with a past medical history of hypertension, uterine fibroids and ovarian cyst, diverticulitis, presents to this ED c/o worsening of LLQ abdominal pain this morning. Patient stated she developed left sided abdominal pain x 10 days. Patient stated she came to [facility] ED x 6 days ago, and she was diagnosed with diverticulitis. Patient was admitted and recommended IV ABX. However, patient signed AMA the day after admission x 5 days ago. The same day, patient was seen by Dr. Monterroso who prescribed her Cipro and Flagyl. Patient stated abdominal pain persist despite ABX. Patient saw her GI doctor Mary Ellen, who told patient to stop Cipro and flagy, and to start Bactrim DS instead. Patient stated since she started taking Bactrim abdominal pain worsen. Patient denies n/v/d, sob, cp, urinary symptoms, dizziness or abnormal gait. (Sarah Minor) Past Medical History - Provider Review Nursing Documentation Reviewed: Yes - Infectious Disease Hx of Infectious Diseases: None - Tetanus Immunization Tetanus Immunization: Unknown - Cardiac Hx Cardiac Disorders: Yes Hx Hypertension: Yes - Musculoskeletal/Rheumatological Hx Musculoskeletal Disorders: Yes (TORN RIGHT SHOULDER ROTATOR CUFF) Hx Falls: No - Genitourinary/Gynecological Other/Comment: Fibroids - Psychiatric Hx Substance Use: No - Surgical History Hx Orthopedic Surgery: Yes (Right Shldr) Other/Comment: ovarian cyst-REMOVED. Fibriods removed. - Anesthesia Hx Anesthesia: Yes Hx Anesthesia Reactions: No Hx Malignant Hyperthermia: No - Suicidal Assessment Feels Threatened In Home Enviroment: No <Sarah Minor - Last Filed: 10/01/17 00:05> Family/Social History - Physician Review Nursing Documentation Reviewed: Yes Family/Social History: Other (noncontributory) Smoking Status: Never Smoked Hx Alcohol Use: No Hx Substance Use: No Hx Substance Use Treatment: No <Sarah Minor - Last Filed: 10/01/17 00:05> Allergies/Home Meds <Sarah Minor - Last Filed: 10/01/17 00:05> <Dmitry Roca - Last Filed: 10/01/17 00:26> Allergies/Adverse Reactions: Allergies No Known Allergies Allergy (Verified 09/30/17 21:18) Home Medications: Home Meds Medication Instructions Recorded Confirmed Olmesartan Medoxomil [Benicar] 20 mg PO DAILY 09/30/17 09/30/17 Sulfamethoxazole/Trimethoprim 1 tab PO BID 09/30/17 09/30/17 [Bactrim DS Tab] metroNIDAZOLE [Flagyl] 500 mg PO BID 09/30/17 09/30/17 Review of Systems - Review of Systems Constitutional: Normal. absent: Fatigue, Weight Change, Fevers Eyes: Normal ENT: Normal. absent: Sore Throat Respiratory: Normal. absent: SOB, Cough Cardiovascular: Normal Gastrointestinal: Abdominal Pain. absent: Constipation, Diarrhea, Nausea, Vomiting Genitourinary Female: Normal. absent: Dysuria, Frequency Musculoskeletal: Normal Skin: Normal. absent: Rash Neurological: Normal. absent: Headache, Dizziness, Focal Weakness, Gait Changes , Speech Changes, Facial Droop Endocrine: Normal Hemo/Lymphatic: Normal Psychiatric: Normal <Sarah Minor - Last Filed: 10/01/17 00:05> Physical Exam Temperature: Afebrile Blood Pressure: Normal Pulse: Regular Respiratory Rate: Normal Appearance: Positive for: Well-Appearing, Non-Toxic, Comfortable Pain Distress: None Mental Status: Positive for: Alert and Oriented X 3 - Systems Exam Head: Present: Atraumatic, Normocephalic Pupils: Present: PERRL Extroacular Muscles: Present: EOMI Conjunctiva: Present: Normal Mouth: Present: Moist Mucous Membranes Neck: Present: Normal Range of Motion Respiratory/Chest: Present: Clear to Auscultation, Good Air Exchange. No: Respiratory Distress, Accessory Muscle Use Cardiovascular: Present: Regular Rate and Rhythm, Normal S1, S2. No: Murmurs Abdomen: Present: Tenderness (mild LLQ tenderness on palption, abdomen is obese. Nondistended, no guarding), Normal Bowel Sounds. No: Distention, Peritoneal Signs, Rebound, Guarding, McBurney's Point Tender, Rovsing's Sign Present, Hernias Back: Present: Normal Inspection. No: CVA Tenderness Upper Extremity: Present: Normal Inspection, Normal ROM. No: Cyanosis, Edema Lower Extremity: Present: Normal Inspection, Normal ROM. No: Edema Neurological: Present: GCS=15, CN II-XII Intact, Speech Normal, Motor Func Grossly Intact, Normal Sensory Function, Normal Cerebellar Funct, Gait Normal Skin: Present: Warm, Dry, Normal Color. No: Rashes Psychiatric: Present: Alert, Oriented x 3, Normal Insight, Normal Concentration <Minor,Nahim P - Last Filed: 10/01/17 00:05> Vital Signs Temp Pulse Resp BP Pulse Ox 09/30/17 23:23 67 21 125/69 97 09/30/17 21:21 98.6 F 96 H 16 113/74 100 Medical Decision Making Re-evaluation Time: 00:14 Reassessment Condition: Re-examined, Improving,but remains with symptoms <Sarah Minor - Last Filed: 10/01/17 00:05> <Dmitry Roca - Last Filed: 10/01/17 00:26> ED Course and Treatment: 10/01/17 00:[address] Monterroso regarding patient c/o LLQ abdominal pain, with a recent Dx. diverticulitis. Dr. Monterroso agreed with plan for admission, and recommended medical consult for Dr. Montemayor, Dr. Bailey, and Dr. Sukhwinder KOENIG. He recommended Zosyn (Minor,Nahim P) - Lab Interpretations Lab Results: 09/30/17 22:48 09/30/17 22:48 Lab Results 09/30/17 22:48: Sodium 140, Potassium 3.1 L, Chloride 102, Carbon Dioxide 25, Anion Gap 16, BUN 11, Creatinine 0.8, Est GFR ( Amer) > 60, Est GFR (Non- Af Amer) > 60, Random Glucose 123 H, Calcium 9.4, Total Bilirubin 0.4, AST 28, ALT 20, Alkaline Phosphatase 78, Total Protein 7.6, Albumin 4.0, Globulin 3.6, Albumin/Globulin Ratio 1.1, Lipase 37 09/30/17 22:48: PT 15.7 H, INR 1.37 H, APTT 30.8 09/30/17 22:48: WBC 9.3 D, RBC 4.14, Hgb 11.7 L, Hct 34.7 L, MCV 83.8, MCH 28.3 , MCHC 33.7, RDW 13.9, Plt Count 410, MPV 9.6, Gran % 81.0 H, Lymph % (Auto) 14.5 L, [place] % (Auto) 4.2, Eos % (Auto) 0.1 L, Baso % (Auto) 0.2, Gran # 7.49 H , Lymph # (Auto) 1.3, [place] # (Auto) 0.4, Eos # (Auto) 0.0, Baso # (Auto) 0.02 - Medication Orders Current Medication Orders: Potassium Chloride (Potassium Chloride 20 Meq/100 Ml) 20 meq in 100 mls @ 50 mls/hr IVPB Q2H LYDIA Stop: 10/01/17 04:14 Piperacillin Sod/Tazobactam Sod (Zosyn 4.5 Gm In Ns 100ml) 4.5 gm in 100 mls @ 200 mls/hr IVPB STAT STA PRN Reason: Protocol Stop: 10/01/17 00:44 Sodium Chloride (Sodium Chloride 0.9%) 1,000 mls @ 100 mls/hr IV .Q10H LYDIA Morphine Sulfate (Morphine) 4 mg IVP Q4H PRN PRN Reason: Pain, severe (8-10) Stop: 10/01/17 09:00 Ondansetron HCl (Zofran Inj) 4 mg IVP Q4H PRN PRN Reason: Nausea/Vomiting Stop: 10/01/17 09:00 Discontinued Medications Famotidine (Pepcid) 20 mg IVP STAT STA Stop: 09/30/17 22:04 Last Admin: 09/30/17 22:52 Dose: 20 mg IVP Administration Document 09/30/17 22:52 RG (Rec: 09/30/17 22:57 YARA [id number]) Charges for Administration # of IVP Administrations 1 Morphine Sulfate (Morphine) 4 mg IVP STAT STA Stop: 09/30/17 22:04 Last Admin: 09/30/17 22:52 Dose: 4 mg MAR Pain Assessment Document 09/30/17 22:52 RG (Rec: 09/30/17 22:58 [id number]) Pain Reassessment Is this a pain reassessment? Yes Sleep Is patient sleeping during reassessment? No Presence of Pain Presence of Pain Yes Pain Scale Used Pain Scale Used Numeric Location Upper or Lower Upper Pain Location Body Site Abdomen Description Description Constant Intensity of Pain at present 8 Pain Behavior Rubbing Site IVP Administration Document 09/30/17 22:52 (Rec: 09/30/17 22:58 [id number]) Charges for Administration # of IVP Administrations 1 Re-Assess: [facility] Pain Assessment Document 09/30/17 23:52 (Rec: 10/01/17 00:24 [id number]) Pain Reassessment Is this a pain reassessment? Yes Sleep Is patient sleeping during reassessment? 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 / has examined the patient and agrees with the treatment plan. <Dmitry Roca - Last Filed: 10/01/17 00:26> Disposition/Present on Arrival - Present on Arrival Any Indicators Present on Arrival: No History of DVT/PE: No History of Uncontrolled Diabetes: No Urinary Catheter: No History of Decub. Ulcer: No History Surgical Site Infection Following: None - Disposition Have Diagnosis and Disposition been Completed?: Yes Disposition Time: 00:16 Patient Plan: Admission <Sarah Minor - Last Filed: 10/01/17 00:05> <Dmitry Roca - Last Filed: 10/01/17 00:26> - Disposition Diagnosis: Intractable abdominal pain Disposition: HOSPITALIZED Patient Problems: Current Active Problems Problem Status Onset Intractable abdominal pain Acute Condition: STABLE Referrals: [employer] Alisa Req, [Primary Care Provider] - Follow up with primary Forms: Anyone Home ([place])
[2017-09-30 23:12] LABS: BASO # 0.02 K/mm3 (0.0-2.0); BASO % 0.2 % (0.0-3.0); EOS % 0.1 % (1.5-5.0); GRAN # 7.49 (1.4-6.5); HEMOGLOBIN 11.7 g/dL (12.0-16.0); LYMPH # 1.3 (1.2-3.4); LYMPH % 14.5 % (22.0-35.0); MEAN CELL VOLUME 83.8 fl (80.0-105.0); MEAN CORPUSCULAR HEMOGLOBIN 28.3 pg (25.0-35.0); MEAN CORPUSCULAR HGB CONC 33.7 g/dl (31.0-37.0); MEAN PLATELET VOLUME 9.6 fl (7.0-11.0); MONO # 0.4 (0.1-0.6); MONO % 4.2 % (1.0-6.0); RBC 4.14 10^6/uL (3.5-6.1); RED CELL DISTRIBUTION WIDTH 13.9 % (11.5-14.5); WHITE BLOOD COUNT 9.3 10^3/ul (4.5-11.0)
[2017-09-30 23:24] LABS: ALB/GLOB RATIO 1.1 (1.1-1.8); ALT/SGPT 20 U/L (7-56); AST/SGOT 28 U/L (14-36); BLOOD UREA NITROGEN 11 mg/dL (7-21); CALCIUM 9.4 mg/dL (8.4-10.5); GFR AFRICAN-AMERICAN > 60; GFR NON-AFRICAN AMERICAN > 60; LIPASE 37 U/L (23-300)
[2017-09-30 23:26] LABS: INR 1.37 (0.93-1.08); PARTIAL THROMBOPLASTIN TIME 30.8 Seconds (25.1-36.5); PROTHROMBIN TIME 15.7 SECONDS (9.4-12.5)
[2017-10-01] MEDS ORDERED: Piperacill/Tazo 4.5gm in NS 4.5 GM/100 ML BAG IVPB STA (00:15)
[2017-10-01] MEDS ORDERED: Morphine 4 mg/ml ISec IVP PRN ×2 (00:20→19:19)
[2017-10-01 00:27] LABS: URINE BILIRUBIN SMALL (NEGATIVE); URINE BLOOD TRACE-INTACT (NEGATIVE); URINE GLUCOSE (UA) NEGATIVE (NEGATIVE); URINE LEUKOCYTE ESTERASE NEGATIVE Leu/uL (NEGATIVE); URINE NITRATE NEGATIVE (NEGATIVE); URINE PROTEIN TRACE mg/dL (<30 mg/dL); URINE UROBILINOGEN 0.2 E.U./dL (<1 E.U./dL)
[2017-10-01] MEDS: Sodium Chloride 0.9% 1,000 ML IV SCH ×2 (00:35→09:32)
[2017-10-01 00:41] LABS: URINE APPEARANCE CLEAR (CLEAR); URINE COLOR YELLOW (YELLOW)
[2017-10-01 00:52] LABS: URINE BACTERIA RARE (NEG); URINE EPITHELIAL CELLS 0 - 2 /hpf (0-5); URINE WBC 0 - 2 /hpf (0-6)
--- NOTE | 2017-10-01 06:28 | CP.PCM.CON ---
History of Present Illness - History of Present Illness History of Present Illness: Surgery Consult note. Dr. Zaragoza 37yo F with HTN, Ovarian Cyst, Uterine Fibroids here for evaluation of abdominal pain. Pain started 10 days ago, located in the LLQ. Described as crampy, gassy type of pain. She reports that the LLQ pain has been persistent, and she would obtain mild relief after having a loose BM, and then the pain would return a few hours later with another urge to defecate. Patient was here on 09/25 for similar complaints, however, she left AMA with plans to follow up with her PMD. She saw Dr. Ugalde on 09/26, was given prescription for Cipro and Flagyl, however, symptoms did not improve. She was then evaluated by GI, Dr. Acosta, and was switched from Cipro to Bactrim. She took 1 day of bactrim and states that she started having nausea and vomiting, non-bilious, non-bloody which began yesterday morning. She also c/o severe worsening abdominal pain last night and returned to the ER for further evaluation. In the ED, patient received morphine, zofran and a dose of zosyn. This morning, she states that her pain has resolved and she currently denies any N/V/D. No F/C. No CP/SOB. No Headaches. No Dizziness. No urinary changes. Never has had similar symptoms prior to this episode. FDLMP: 09/24. PMD: Dr. 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 [employer]; Denies Tobacco use; Denies ETOH use; Denies illicit drugs NKDA Review of Systems - Review of Systems All systems: reviewed and no additional remarkable complaints except - Constitutional Constitutional: absent: Chills, Fever - Cardiovascular Cardiovascular: absent: Chest Pain, Diaphoresis, Dyspnea - Respiratory Respiratory: absent: Dyspnea - Gastrointestinal Gastrointestinal: Abdominal Pain, Loose Stools, Nausea, Vomiting - Genitourinary Genitourinary: absent: Dysuria Past Patient History - Infectious Disease Hx of Infectious Diseases: None - Tetanus Immunizations Tetanus Immunization: Unknown - Past Medical History & Family History Past Medical History?: Yes - Past Social History Smoking Status: Never Smoked Alcohol: None Drugs: Denies - CARDIAC Hx Hypertension: Yes - MUSCULOSKELETAL/RHEUMATOLOGICAL Hx Falls: No - GENITOURINARY/GYNECOLOGICAL Other/Comment: Fibroids - PSYCHIATRIC Hx Substance Use: No - SURGICAL HISTORY Hx Orthopedic Surgery: Yes (rt shoulder repair) - ANESTHESIA Hx Anesthesia: Yes Hx Anesthesia Reactions: No Hx Malignant Hyperthermia: No Meds Allergies/Adverse Reactions: Allergies Allergy/AdvReac Type Severity Reaction Status Date / Time No Known Allergies Allergy Verified 09/30/17 21:18 - Medications Medications: Current Medications Sodium Chloride (Sodium Chloride 0.9%) 1,000 mls @ 100 mls/hr IV .Q10H LYDIA Last Admin: 10/01/17 00:35 Dose: 100 mls/hr Piperacillin Sod/Tazobactam Sod (Zosyn 3.375 In Ns 100ml) 100 mls @ 200 mls/hr IVPB Q6 LYDIA PRN Reason: Protocol Stop: 10/08/17 06:31 Morphine Sulfate (Morphine) 4 mg IVP Q4H PRN PRN Reason: Pain, severe (8-10) Stop: 10/01/17 09:00 Ondansetron HCl (Zofran Inj) 4 mg IVP Q4H PRN PRN Reason: Nausea/Vomiting Stop: 10/01/17 09:00 Physical Exam - Constitutional Appears: Well, Non-toxic, No Acute Distress - Head Exam Head Exam: ATRAUMATIC, NORMAL INSPECTION, NORMOCEPHALIC - Eye Exam Eye Exam: EOMI, Normal appearance. absent: Conjunctival injection, Scleral icterus - ENT Exam ENT Exam: Mucous Membranes Moist - Respiratory Exam Respiratory Exam: NORMAL BREATHING PATTERN. absent: Accessory Muscle Use - Cardiovascular Exam Cardiovascular Exam: absent: JVD - GI/Abdominal Exam GI & Abdominal Exam: Soft. absent: Distended, Firm, Guarding, Rebound, Rigid, Tenderness Additional comments: No tenderness to deep palpation LLQ. - Extremities Exam Extremities exam: Negative for: calf tenderness - Back Exam Back exam: NORMAL INSPECTION - Neurological Exam Neurological exam: Alert, Oriented x3 - Skin Skin Exam: Dry, Intact, Warm Results - Vital Signs Recent Vital Signs: Last Vital Signs Temp 98.6 F 09/30/17 21:21 Pulse 66 10/01/17 01:31 Resp 20 10/01/17 01:47 BP 122/67 02/21/18 01:31 Pulse Ox 97 10/01/17 01:31 - Labs Result Diagrams: 09/30/17 22:48 09/30/17 22:48 Assessment & Plan - Assessment and Plan (Free Text) Assessment: 37yo F with possible diverticulitis - Prior CT scan noted - No leukocytosis (high-normal wnl, but increased compared to 1 week ago) - VSS. Afebrile Plan: - NPO bowel rest - Continue IV Abx as per ID - IVF - Will obtain repeat CT abd/pelvis with PO and IV contrast - Strict I&Os - Serial Abdominal exams - F/u GI recs. Patient will benefit from elective colonoscopy 6-8wks after symptoms resolve - Pain management - Anti-emetics Further recs as per Dr. Nik Acevedo PGY1 surgery pager: [phone]
[2017-10-01] MEDS ORDERED: Barium Sulfate Susp 2.1% w/v, 2.0% w/w 450 mL Bottle PO ONE (06:44)
[2017-10-01] MEDS: Piperacillin/Tazobact 3.375 gm 100 ML IVPB SCH ×4 (08:21→23:30)
[2017-10-01] MEDS ORDERED: Iohexol 350 MG/100 ML VIAL ONE (08:40)
[2017-10-01 08:45] LABS: BASO # 0.02 K/mm3 (0.0-2.0); BASO % 0.2 % (0.0-3.0); EOS # 0.1 (0.0-0.7); GRAN # 5.5 (1.4-6.5); GRAN % 62.3 % (50.0-68.0); HEMOGLOBIN 11.1 g/dL (12.0-16.0); LYMPH # 2.6 (1.2-3.4); LYMPH % 28.9 % (22.0-35.0); MEAN CELL VOLUME 85.1 fl (80.0-105.0); MEAN CORPUSCULAR HEMOGLOBIN 27.6 pg (25.0-35.0); MEAN CORPUSCULAR HGB CONC 32.5 g/dl (31.0-37.0); MEAN PLATELET VOLUME 9.3 fl (7.0-11.0); MONO # 0.7 (0.1-0.6); MONO % 7.6 % (1.0-6.0); RBC 4.02 10^6/uL (3.5-6.1); RED CELL DISTRIBUTION WIDTH 14.2 % (11.5-14.5); WHITE BLOOD COUNT 8.8 10^3/ul (4.5-11.0)
[2017-10-01 09:02] LABS: ALB/GLOB RATIO 1.1 (1.1-1.8); ALBUMIN 3.8 g/dL (3.0-4.8); ALT/SGPT 19 U/L (7-56); AST/SGOT 26 U/L (14-36); BLOOD UREA NITROGEN 9 mg/dL (7-21); GFR AFRICAN-AMERICAN > 60; GFR NON-AFRICAN AMERICAN > 60
--- NOTE | 2017-10-01 10:57 | CT ---
PROCEDURE: CT Abdomen and Pelvis with contrast HISTORY: Diverticulitis-10 days COMPARISON: 09/25/2017 CT TECHNIQUE: Contrast dose: 100 cc of Omni 350 Radiation dose: Total exam DLP = 1103 mGy-cm. This CT exam was performed using one or more of the following dose reduction techniques: Automated exposure control, adjustment of the mA and/or kV according to patient size, and/or use of iterative reconstruction technique. FINDINGS: LOWER THORAX: Unremarkable. LIVER: Unremarkable. No gross lesion or ductal dilatation. GALLBLADDER AND BILE DUCTS: Unremarkable. PANCREAS: Unremarkable. No gross lesion or ductal dilatation. SPLEEN: Unremarkable. ADRENALS: Unremarkable. No mass. KIDNEYS AND URETERS: Unremarkable. No hydronephrosis. No solid mass. VASCULATURE: Unremarkable. No aortic aneurysm. BOWEL: There is severe diverticulitis of the sigmoid colon. There is a slight increase in the surrounding inflammatory changes. There is no evidence of abscess APPENDIX: Normal appendix. PERITONEUM: Unremarkable. No free fluid. No free air. LYMPH NODES: Unremarkable. No enlarged lymph nodes. BLADDER: Unremarkable. REPRODUCTIVE: Left ovarian cysts are seen. There is fluid in the cul-de-sac. Findings are unchanged. BONES: No acute fracture. OTHER FINDINGS: None. IMPRESSION: There is severe diverticulitis of the sigmoid colon. There is a slight increase in the surrounding inflammatory changes. There is no evidence of abscess
--- NOTE | 2017-10-01 11:04 | CP.PCM.PCO ---
Physician Communication Note - Physician Communication Note Physician Communication Note: Severe worsening diverticulitis/[employer] Perf/Param NPO- IV AB
--- NOTE | 2017-10-01 12:37 | CP.PCM.CON ---
History of Present Illness - History of Present Illness History of Present Illness: 37 year old female with obesity with BMI 37, HTN, uterine fibroids, ovarian cyst was admitted last week for left lower quadrant pain and was found to have acute sigmoid diverticulitis. She was started on IV antibiotics but the patient signed out against medical advice and was given Cipro and Flagyl. She continued to have abdominal pain and then saw a GI specialist who then told to take Bactrim instead. She developed nausea and vomiting with the Bactrim and her abdominal pain got worse yesterday after eating a meal. She denies fever or chills, no headache or dizziness, no chest pain, no SOB, no sore throat, no rhinorrhea or cough, no diarrhea, on dysuria, no blood in the stools. CT A/P has been repeated showing severe sigmoid diverticulitis with worsening of inflammation. Infectious Diseases consult is requested to further evaluate and manage. Review of Systems - Review of Systems All systems: reviewed and no additional remarkable complaints except (as per HPI ) Past Patient History - Infectious Disease Hx of Infectious Diseases: None - Tetanus Immunizations Tetanus Immunization: Unknown - Past Medical History & Family History Past Medical History?: Yes - Past Social History Smoking Status: Never Smoked - CARDIAC Hx Hypertension: Yes - MUSCULOSKELETAL/RHEUMATOLOGICAL Hx Falls: No - GENITOURINARY/GYNECOLOGICAL Other/Comment: Fibroids - PSYCHIATRIC Hx Substance Use: No - SURGICAL HISTORY Hx Orthopedic Surgery: Yes (rt shoulder repair) - ANESTHESIA Hx Anesthesia: Yes Hx Anesthesia Reactions: No Hx Malignant Hyperthermia: No Meds Allergies/Adverse Reactions: Allergies Allergy/AdvReac Type Severity Reaction Status Date / Time No Known Allergies Allergy Verified 09/30/17 21:18 - Medications Medications: Current Medications Sodium Chloride (Sodium Chloride 0.9%) 1,000 mls @ 100 mls/hr IV .Q10H [facility] Last Admin: 10/01/17 00:35 Dose: 100 mls/hr Morphine Sulfate (Morphine) 4 mg IVP Q4H PRN PRN Reason: Pain, severe (8-10) Stop: 10/01/17 09:00 Ondansetron HCl (Zofran Inj) 4 mg IVP Q4H PRN PRN Reason: Nausea/Vomiting Stop: 10/01/17 09:00 Physical Exam - Constitutional Appears: Non-toxic - Head Exam Head Exam: NORMAL INSPECTION - ENT Exam ENT Exam: Mucous Membranes Moist - Neck Exam Neck exam: Negative for: Meningismus - Respiratory Exam Respiratory Exam: absent: Rales, Rhonchi - Cardiovascular Exam Cardiovascular Exam: +S1, +S2 - GI/Abdominal Exam GI & Abdominal Exam: Soft, Tenderness (mild, LLQ area). absent: Distended, Guarding, Rebound, Rigid Results - Vital Signs Recent Vital Signs: Last Vital Signs Temp 98.6 F 09/30/17 21:21 Pulse 66 10/01/17 01:31 Resp 20 10/01/17 01:47 BP 122/67 10/01/17 01:31 Pulse Ox 97 10/01/17 01:31 - Labs Result Diagrams: 10/01/17 08:15 10/01/17 08:15 Assessment & Plan - Assessment and Plan (Free Text) Plan: Assessment Severe acute sigmoid diverticulitis obesity with BMI 37 HTN uterine fibroids ovarian cyst Plan Started the patient on Zosyn and will monitor clinical response while patient is NPO follow up further recommendations of GI and Surgery
--- NOTE | 2017-10-01 13:04 | CP.PCM.CON ---
<Jody Jones - Last Filed: 10/01/17 13:02> History of Present Illness - History of Present Illness History of Present Illness: Seen and examined at the bedside this afternoon, chart review. Request for GI consult is for acute diverticulitis. HPI: This is a 37-year-old obese -[place] female with history of recent acute diverticulitis, HTN,Uterine Fibroids, and Ovarian cyst, was recently admitted (09/25/17) for acute diverticulitis and left AMA. Upon discharge she went to see her PCP who had given her oral antibiotics of Cipro and Flagyl. The patient still having abdominal discomfort went to her account director Dr. Anne who discontinued Cipro and placed her on Bactrim and Flagyl. The patient complained of vomiting and worsening left lower quadrant abdominal pain. Initially she started consuming full liquids and other day the patient reported having solid which intensified her abdominal pain.the patient returned back to the emergency room for further evaluation. She denies any fever or chills. Denies nausea, vomiting, or symptoms of dyspepsia.Her last bowel movement was this morning which is reported to be semi-loose, no melena or bright red blood. She went for a CT scan of the abdomen and pelvis with IV and oral contrast earlier today and this reported worsening inflammation of diverticulitis. No reports of perforation or abscess. The patient reports that her abdominal pain is better today, her last dose of pain medication was yesterday on admission. Currently she is nothing by mouth was recently seen by surgery and ID. Never had EGD or colon. 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 [employer] Medications: Reviewed as per MAR ROS: Systems reviewed with positive findings the HPI Past Patient History - Infectious Disease Hx of Infectious Diseases: None - Tetanus Immunizations Tetanus Immunization: Unknown - Past Medical History & Family History Past Medical History?: Yes - Past Social History Smoking Status: Never Smoked - CARDIAC Hx Hypertension: Yes - MUSCULOSKELETAL/RHEUMATOLOGICAL Hx Falls: No - GENITOURINARY/GYNECOLOGICAL Other/Comment: Fibroids - PSYCHIATRIC Hx Substance Use: No - SURGICAL HISTORY Hx Orthopedic Surgery: Yes (rt shoulder repair) - ANESTHESIA Hx Anesthesia: Yes Hx Anesthesia Reactions: No Hx Malignant Hyperthermia: No Meds Allergies/Adverse Reactions: Allergies Allergy/AdvReac Type Severity Reaction Status Date / Time No Known Allergies Allergy Verified 09/30/17 21:18 - Medications Medications: Current Medications Sodium Chloride (Sodium Chloride 0.9%) 1,000 mls @ 100 mls/hr IV .Q10H LYDIA Last Admin: 10/01/17 09:32 Dose: 100 mls/hr Piperacillin Sod/Tazobactam Sod (Zosyn 3.375 In Ns 100ml) 100 mls @ 200 mls/hr IVPB Q6 LYDIA PRN Reason: Protocol Stop: 10/08/17 06:31 Last Admin: 10/01/17 08:21 Dose: 200 mls/hr Physical Exam - Constitutional Appears: No Acute Distress - Head Exam Head Exam: NORMOCEPHALIC - Eye Exam Eye Exam: Normal appearance. absent: Scleral icterus Pupil Exam: NORMAL ACCOMODATION - ENT Exam ENT Exam: Mucous Membranes Moist - Neck Exam Neck exam: Positive for: Normal Inspection - Respiratory Exam Respiratory Exam: Clear to Auscultation Bilateral, NORMAL BREATHING PATTERN. absent: Respiratory Distress - Cardiovascular Exam Cardiovascular Exam: +S1, +S2 - GI/Abdominal Exam GI & Abdominal Exam: Normal Bowel Sounds, Soft. absent: Guarding, Organomegaly , Rebound, Tenderness Additional comments: obese - Extremities Exam Extremities exam: Positive for: pedal pulses present. Negative for: calf tenderness, pedal edema - Neurological Exam Neurological exam: Alert, CN II-XII Intact, Oriented x3 - Skin Skin Exam: Dry, Warm Results - Vital Signs Recent Vital Signs: Last Vital Signs Temp 98.6 F 10/01/17 07:00 Pulse 75 10/01/17 07:00 Resp 16 10/01/17 07:00 BP 116/66 10/01/17 07:00 Pulse Ox 99 10/01/17 07:00 - Labs Result Diagrams: 10/01/17 08:15 10/01/17 08:15 Labs: Laboratory Results - last 24 hr 10/01/17 10/01/17 08:15 08:15 WBC 8.8 RBC 4.02 Hgb 11.1 L Hct 34.2 L MCV 85.1 MCH 27.6 MCHC 32.5 RDW 14.2 Plt Count 402 MPV 9.3 Gran % 62.3 Lymph % (Auto) 28.9 [place] % (Auto) 7.6 H Eos % (Auto) 1.0 L Baso % (Auto) 0.2 Gran # 5.50 Lymph # (Auto) 2.6 [place] # (Auto) 0.7 H Eos # (Auto) 0.1 Baso # (Auto) 0.02 Sodium 143 Potassium 3.5 L Chloride 105 Carbon Dioxide 28 Anion Gap 14 BUN 9 Creatinine 0.9 Est GFR ( Amer) > 60 Est GFR (Non-Af Amer) > 60 Random Glucose 96 Calcium 9.0 Total Bilirubin 0.3 AST 26 ALT 19 Alkaline Phosphatase 64 Total Protein 7.3 Albumin 3.8 Globulin 3.5 Albumin/Globulin Ratio 1.1 Assessment & Plan - Assessment and Plan (Free Text) Assessment: Assessment: Acute diverticulitis, no abscess or free air, failed outpatient treatment Morbid obesity Uterine fibroid disease Morbid obesity Hypertension Plan: continue IV antibiotics, On Zosyn NPO, continue IVF for hydration surgery and ID following patient Recommend elective outpatient colonoscopy in 6-8 weeks' time when diverticulitis has resolved, discussed with patient. Thank you for this consult and for allowing us to participate in your patient's care, further recommendations based upon clinical course. Seen and discussed w/ Dr. Pretty. <Gaby Pretty V - Last Filed: 10/02/17 00:14> Meds - Medications Medications: Current Medications Enoxaparin Sodium (Lovenox) 40 mg SC DAILY LYDIA PRN Reason: Protocol Last Admin: 10/01/17 15:56 Dose: Not Given Sodium Chloride (Sodium Chloride 0.9%) 1,000 mls @ 100 mls/hr IV .Q10H [facility] Last Admin: 10/01/17 09:32 Dose: 100 mls/hr Piperacillin Sod/Tazobactam Sod (Zosyn 3.375 In Ns 100ml) 100 mls @ 200 mls/hr IVPB Q6 LYDIA PRN Reason: Protocol Stop: 10/08/17 06:31 Last Admin: 10/01/17 17:49 Dose: 200 mls/hr Losartan Potassium (Cozaar) 50 mg PO DAILY [facility] Morphine Sulfate (Morphine) 4 mg IVP Q4H PRN PRN Reason: Pain, moderate (4-7) Last Admin: 10/01/17 21:26 Dose: 4 mg Results - Vital Signs Recent Vital Signs: Last Vital Signs Temp 97.8 F 10/01/17 16:00 Pulse 74 10/01/17 16:00 Resp 16 10/01/17 16:00 BP 103/58 L 10/01/17 16:00 Pulse Ox 97 10/01/17 16:00 - Labs Result Diagrams: 10/01/17 08:15 10/01/17 08:15 Labs: Laboratory Results - last 24 hr 10/01/17 10/01/17 08:15 08:15 WBC 8.8 RBC 4.02 Hgb 11.1 L Hct 34.2 L MCV 85.1 MCH 27.6 MCHC 32.5 RDW 14.2 Plt Count 402 MPV 9.3 Gran % 62.3 Lymph % (Auto) 28.9 [place] % (Auto) 7.6 H Eos % (Auto) 1.0 L Baso % (Auto) 0.2 Gran # 5.50 Lymph # (Auto) 2.6 [place] # (Auto) 0.7 H Eos # (Auto) 0.1 Baso # (Auto) 0.02 Sodium 143 Potassium 3.5 L Chloride 105 Carbon Dioxide 28 Anion Gap 14 BUN 9 Creatinine 0.9 Est GFR ( Amer) > 60 Est GFR (Non-Af Amer) > 60 Random Glucose 96 Calcium 9.0 Total Bilirubin 0.3 AST 26 ALT 19 Alkaline Phosphatase 64 Total Protein 7.3 Albumin 3.8 Globulin 3.5 Albumin/Globulin Ratio 1.1 Attending/Attestation - Attestation I have personally seen and examined this patient.: Yes I have fully participated in the care of the patient.: Yes I have reviewed all pertinent clinical information: Yes Notes (Text): This is an addendum to GI consullt report dictated by Jody Jones APN.The patient was seen and examined earlier. Medical records, lab studies, imagings were reviewed. Last 24 hours events reviewed. Agreed with the above treatment plan as outlined in Jody Jones APN's notes the with the addition of the following patient has tenderness in the lower left quadrant and the suprapubic area CT scan was reviewed shows significant inflammatory changes worse than the previous CT. However there is no free fluid free air noticed no abscess noticed Continue antibiotics can start clear liquid diet 10/02/17 00:11
[2017-10-01] MEDS ORDERED: Morphine 2 mg/ml ISec IVP PRN (15:37)
[2017-10-01] MEDS: Enoxaparin 40 mg Syringe SC SCH (15:56)
--- NOTE | 2017-10-01 22:41 | CON ---
DATE: 10/01/2017 SUPPLEMENTAL CONSULTATION LOCATION: Room 573. HISTORY OF PRESENT ILLNESS: The patient is a 37-year-old female who has been readmitted to the hospital via the emergency room 5 days after signing out from the same hospital with the same diagnosis of acute diverticulitis. As described by the resident's note dictated just earlier under my supervision, the patient had a previous attack of diverticulitis approximately 10 days ago, thought by the patient to be precipitated by popcorn. She came to the hospital and stayed overnight, and signed against medical advice, and saw her private physician and a GI aws consultant (Dr. Anne), who started Bactrim with the Flagyl. The patient ate a salad with vegetables and chicken, and other things within (dressing), and developed an excruciating pain similar to the one before but slightly worse, and came back to the emergency room. She was seen in the emergency room, thought to have an acute diverticular attack, placed on IV antibiotics and recommended for admission with the same physician who admitted her before (Dr. Vinnie Monterroso). Past medical history and review of systems as mentioned above. The patient is probably midcycle, approximately two and half weeks after her last menstrual period. She has not had children. Social history is noncontributory. PHYSICAL EXAMINATION: ABDOMEN: At the time of examination, nontender without guarding or rebound. LABORATORY DATA: White count is normal, and remainder of the examination, save for electrolyte abnormalities which are being corrected, are otherwise unremarkable. PRESENT HOSPITAL COURSE: The patient describes moving her bowels, which gave relief to the pain. She said that the attack was precipitated by an episode of increased gas pressure and the feeling of a downward urge to move her bowels and defecate. She says that she has no pain now, and she wants to go home. Extensive discussion was held with the patient and with her Freddie Dickson, explaining the findings and the laboratory testing. Photo documentation is utilized to assist in this describing the anatomy and anatomic changes in diverticulitis. The patient is anxious and has been advised that she has two choices that we can operate or treat conservatively. She is not interested in any surgical intervention of any kind at this point, and two modalities were explained with urgent operation in case of perforation or prepared bowel with primary anastomosis. Despite this explanation, she wants reassurance that she can heal and recover on her own, and this has been explained to her and to her that if she takes high dose of parenteral antibiotics and bowel rest, she will get better. She initially was saying she has to eat, but we have described over and over that she cannot eat at this point, and needs several days of bowel rest and high-dose antibiotic. She is willing to consider this now, with the alternative is operation with possible colostomy. Her needs a note from work to take care of two children at home and this aws consultant gave him a family leave act release for 2 to 2-1/2 weeks depending upon the patient's course of recovery. In summary, the patient has been told that her management with antibiotics and the diet she had been trying has been a failure and she has had a recurrence, and the next time may be the one where she perforates and ends up with colostomy. She is fully aware of this and is willing to stay at this point, but is negotiating over and over to try and get out early. This has been advised by Dr. Arnold Simon from Infectious Disease that she may need as much as 5 to 7 days of high-dose antibiotics before he could consider that and this depends upon her recovery at that time. IMPRESSION: Upon discharge is recurrent acute diverticulitis (confirmed by CAT scan this morning) demonstrating worsening diverticulitis without free air. RECOMMENDATIONS: Bowel rest, parenteral antibiotics and continued re-examination and reassurance. Manolo Zaragoza MD
[2017-10-02] MEDS: Piperacillin/Tazobact 3.375 gm 100 ML IVPB SCH ×3 (06:26→17:03)
--- NOTE | 2017-10-02 07:42 | CP.PCM.PN ---
Subjective - Date & Time of Evaluation Date of Evaluation: 10/02/17 Time of Evaluation: 06:00 - Subjective Subjective: Patient seen and examined at bedside. Patient states that her pain is improved, and she had 4 soft bowel movements Objective - Vital Signs/Intake and Output Vital Signs (last 24 hours): Temp Pulse Resp BP Pulse Ox 97.8 F 70 20 100/52 L 98 10/02/17 00:00 10/02/17 00:00 10/02/17 00:00 10/02/17 00:00 10/02/17 00:00 Intake and Output: 10/02/17 10/02/17 06:59 18:59 Intake Total 2400 Balance 2400 - Medications Medications: Current Medications Enoxaparin Sodium (Lovenox) 40 mg SC DAILY L[facility] PRN Reason: Protocol Last Admin: 10/01/17 15:56 Dose: Not Given Sodium Chloride (Sodium Chloride 0.9%) 1,000 mls @ 100 mls/hr IV .Q10H [facility] Last Admin: 10/01/17 09:32 Dose: 100 mls/hr Piperacillin Sod/Tazobactam Sod (Zosyn 3.375 In Ns 100ml) 100 mls @ 200 mls/hr IVPB Q6 LYDIA PRN Reason: Protocol Stop: 10/08/17 06:31 Last Admin: 10/02/17 06:26 Dose: 200 mls/hr Losartan Potassium (Cozaar) 50 mg PO DAILY [facility] Morphine Sulfate (Morphine) 4 mg IVP Q4H PRN PRN Reason: Pain, moderate (4-7) Last Admin: 10/01/17 21:26 Dose: 4 mg - Labs Labs: 10/01/17 08:15 10/01/17 08:15 PT 15.7 SECONDS (9.4-12.5) H 09/30/17 22:48 INR 1.37 (0.93-1.08) H 09/30/17 22:48 APTT 30.8 Seconds (25.1-36.5) 09/30/17 22:48
[2017-10-02 07:45] LABS: BASO # 0.02 K/mm3 (0.0-2.0); BASO % 0.3 % (0.0-3.0); EOS # 0.2 (0.0-0.7); EOS % 2.2 % (1.5-5.0); GRAN # 4.22 (1.4-6.5); GRAN % 61.1 % (50.0-68.0); HEMOGLOBIN 10.3 g/dL (12.0-16.0); LYMPH # 2.1 (1.2-3.4); LYMPH % 30.2 % (22.0-35.0); MEAN CELL VOLUME 86.2 fl (80.0-105.0); MEAN CORPUSCULAR HEMOGLOBIN 26.8 pg (25.0-35.0); MEAN CORPUSCULAR HGB CONC 31.1 g/dl (31.0-37.0); MEAN PLATELET VOLUME 9.1 fl (7.0-11.0); MONO # 0.4 (0.1-0.6); MONO % 6.2 % (1.0-6.0); RBC 3.84 10^6/uL (3.5-6.1); RED CELL DISTRIBUTION WIDTH 14.5 % (11.5-14.5); WHITE BLOOD COUNT 6.9 10^3/ul (4.5-11.0)
[2017-10-02 08:03] LABS: BLOOD UREA NITROGEN 9 mg/dL (7-21); CALCIUM 8.8 mg/dL (8.4-10.5); GFR AFRICAN-AMERICAN > 60; GFR NON-AFRICAN AMERICAN > 60
[2017-10-02] MEDS: Enoxaparin 40 mg Syringe SC SCH (09:32)
[2017-10-02] MEDS: POLYETHYLENE GLYCOL 3350 17 GM/Dose PACKET PO SCH (09:33)
[2017-10-02] MEDS: Simethicone 80 mg Chewtab PO SCH ×4 (09:33→21:25)
[2017-10-02] MEDS ORDERED: Simethicone 40 mg/0.6 ml Liquid (30 ml) PO SCH (10:00)
--- NOTE | 2017-10-02 11:21 | CP.PCM.PCO ---
Physician Communication Note - Physician Communication Note Physician Communication Note: Pt in denial-Now hoping to recover w/o surgery/ Miralax-mylicon Rx
[2017-10-02] MEDS: Pantoprazole 40 mg EC Tab PO SCH (12:49)
--- NOTE | 2017-10-02 12:55 | CP.PCM.PN ---
Subjective - Date & Time of Evaluation Date of Evaluation: 10/02/17 Time of Evaluation: 12:00 - Subjective Subjective: Less abdominal pain, tolerating liquid diet, stools are soft, no fevers. Objective - Vital Signs/Intake and Output Vital Signs (last 24 hours): Temp Pulse Resp BP Pulse Ox 98.3 F 67 20 126/76 98 10/02/17 06:00 10/02/17 06:00 10/02/17 06:00 10/02/17 06:00 10/02/17 06:00 Intake and Output: 10/02/17 10/02/17 06:59 18:59 Intake Total 2400 Balance 2400 - Medications Medications: Current Medications Enoxaparin Sodium (Lovenox) 40 mg SC DAILY [facility] PRN Reason: Protocol Last Admin: 10/01/17 15:56 Dose: Not Given Sodium Chloride (Sodium Chloride 0.9%) 1,000 mls @ 100 mls/hr IV .Q10H [facility] Last Admin: 10/01/17 09:32 Dose: 100 mls/hr Piperacillin Sod/Tazobactam Sod (Zosyn 3.375 In Ns 100ml) 100 mls @ 200 mls/hr IVPB Q6 [facility] PRN Reason: Protocol Stop: 10/08/17 06:31 Last Admin: 10/02/17 06:26 Dose: 200 mls/hr Losartan Potassium (Cozaar) 50 mg PO DAILY [facility] Morphine Sulfate (Morphine) 4 mg IVP Q4H PRN PRN Reason: Pain, moderate (4-7) Last Admin: 10/01/17 21:26 Dose: 4 mg Polyethylene Glycol (Miralax) 17 gm PO DAILY [facility] Simethicone (Mylicon Liq) 40 mg PO QID [facility] Simethicone (Mylicon Chew Tab) 80 mg PO [facility] - Labs Labs: 10/02/17 07:00 10/02/17 07:00 PT 15.7 SECONDS (9.4-12.5) H 09/30/17 22:48 INR 1.37 (0.93-1.08) H 09/30/17 22:48 APTT 30.8 Seconds (25.1-36.5) 09/30/17 22:48 - Constitutional Appears: Non-toxic - Head Exam Head Exam: NORMAL INSPECTION - ENT Exam ENT Exam: Mucous Membranes Moist - Neck Exam Neck Exam: absent: Meningismus - Respiratory Exam Respiratory Exam: Decreased Breath Sounds - Cardiovascular Exam Cardiovascular Exam: +S1, +S2 - GI/Abdominal Exam GI & Abdominal Exam: Soft. absent: Tenderness Assessment and Plan - Assessment and Plan (Free Text) Plan: Assessment Severe acute sigmoid diverticulitis obesity with BMI 37 HTN uterine fibroids ovarian cyst Plan continue Zosyn day 2 and will monitor clinical response follow up further recommendations of GI and Surgery
--- NOTE | 2017-10-02 13:50 | HP ---
DATE OF EXAM: 10/01/2017 CHIEF COMPLAINT: A 37-year-old healthy female. She does have a history of hypertension, came in to the hospital with abdominal pain and vomiting. HISTORY OF PRESENT ILLNESS: A 37-year-old female, who was seen as outpatient for diverticulitis, was given antibiotic, Cipro plus Flagyl, I believe, then switched to Bactrim plus Flagyl as outpatient therapy for her possible diverticulitis. She threw up. She vomited and she has more pain in the lower abdomen. She came in to [facility] for evaluations. She denied any fever, chills, any diarrhea. The patient has no history of any GI surgery in the past. PAST MEDICAL HISTORY: As I mentioned, hypertension and it seems to be her BMI is running at 37. MEDICATIONS SHE TAKE: She is taking Benicar 20 mg daily, Flagyl and Bactrim DS as outpatient. ALLERGY: NO KNOWN ALLERGIES. SOCIAL HISTORY: She is , 2 children. She never smoked. Not drinking alcohol. No substance abuse. REVIEW OF SYSTEMS: She denied any other complaint. She feels fine otherwise. No dysuria. No neurologic finding. No negative review of systems except the GI recently in the present illness. PHYSICAL EXAMINATION: VITAL SIGNS: Temperature 97.8, heart rate 74, blood pressure 103/58, respirations 16, saturations 97%. HEAD AND NECK: Normal. No JVD. No thyromegaly. CHEST: Clear. Good air entry. CARDIAC: First sound and second sound normal. ABDOMEN: Soft, obese. Tender in the lower abdomen, mainly on the left side. EXTREMITIES: No edema. NEUROLOGIC: Normal. LABORATORY STUDY: White count 9.3, hemoglobin 11.7, hematocrit 37.7, platelets 410. Chemistry: Sodium 140, potassium is 3.5, chloride is 105, bicarb 28, BUN 9, creatinine 0.9. Liver function test is normal. Urinalysis was negative. PT/PTT was within normal range. PT/INR; PT is 15.7, INR 1.37. PTT is normal. The patient also had a CT abdomen and pelvis done on admission, which shows there is severe diverticulitis of sigmoid colon. There is slight increase in the surrounding inflammatory changes, but there is no abscess. Also, the patient had left ovarian cyst. There is fluid in the cul-de-sac. IMPRESSION: 1. Acute severe diverticulitis. We will admit the patient. N.p.o., intravenous fluids. Gastroenterology consult, Infectious Disease consultation. We will give the patient intravenous antibiotic, Zosyn, Flagyl and Protonix for deep venous thrombosis prophylaxis. Also, we will put the patient on Gastroenterology consultation and put the patient on IV Protonix. Continue current therapy. 2. For hypertension, we will put her on blood pressure medication, losartan. We will monitor her blood pressure. Vinnie Monterroso MD
[2017-10-02] MEDS: Sodium Chloride 0.9% 1,000 ML IV SCH ×2 (15:29→20:27)
--- NOTE | 2017-10-02 18:07 | CP.PCM.PN ---
<Jody Jones - Last Filed: 10/02/17 18:07> Subjective - Date & Time of Evaluation Date of Evaluation: 10/02/17 Time of Evaluation: 10:25 - Subjective Subjective: S&E at bedside, tolerating oral intake, on clears, no fever or chills, reports abdominal pain much improved. 3-11/18. No new complaints.Had soft stool. Objective - Vital Signs/Intake and Output Vital Signs (last 24 hours): Temp Pulse Resp BP Pulse Ox 98.3 F 62 20 126/76 98 10/02/17 06:00 10/02/17 09:33 10/02/17 06:00 10/02/17 09:33 10/02/17 06:00 Intake and Output: 10/02/17 10/02/17 06:59 18:59 Intake Total 2400 960 Balance 2400 960 - Medications Medications: Current Medications Enoxaparin Sodium (Lovenox) 40 mg SC DAILY [facility] PRN Reason: Protocol Last Admin: 10/02/17 09:32 Dose: 40 mg Sodium Chloride (Sodium Chloride 0.9%) 1,000 mls @ 100 mls/hr IV .Q10H [facility] Last Admin: 10/02/17 15:29 Dose: 100 mls/hr Piperacillin Sod/Tazobactam Sod (Zosyn 3.375 In Ns 100ml) 100 mls @ 200 mls/hr IVPB Q6 [facility] PRN Reason: Protocol Stop: 10/08/17 06:31 Last Admin: 10/02/17 17:03 Dose: 200 mls/hr Losartan Potassium (Cozaar) 50 mg PO DAILY [facility] Last Admin: 10/02/17 09:33 Dose: 50 mg Morphine Sulfate (Morphine) 4 mg IVP Q4H PRN PRN Reason: Pain, moderate (4-7) Last Admin: 10/01/17 21:26 Dose: 4 mg Pantoprazole Sodium (Protonix Ec Tab) 40 mg PO ACB [facility] Last Admin: 10/02/17 12:49 Dose: 40 mg Polyethylene Glycol (Miralax) 17 gm PO DAILY [facility] Last Admin: 10/02/17 09:33 Dose: 17 gm Simethicone (Mylicon Chew Tab) 80 mg PO PCHS [facility] Last Admin: 10/02/17 17:03 Dose: 80 mg - Labs Labs: 02/22/18 07:00 10/02/17 07:00 PT 15.7 SECONDS (9.4-12.5) H 09/30/17 22:48 INR 1.37 (0.93-1.08) H 09/30/17 22:48 APTT 30.8 Seconds (25.1-36.5) 09/30/17 22:48 - Constitutional Appears: No Acute Distress - Eye Exam Eye Exam: Normal appearance. absent: Scleral icterus - ENT Exam ENT Exam: Mucous Membranes Moist - Neck Exam Neck Exam: Normal Inspection - Respiratory Exam Respiratory Exam: NORMAL BREATHING PATTERN. absent: Respiratory Distress - Cardiovascular Exam Cardiovascular Exam: +S1, +S2 - GI/Abdominal Exam GI & Abdominal Exam: Soft, Normal Bowel Sounds. absent: Guarding, Tenderness, Rebound - Extremities Exam Extremities Exam: absent: Calf Tenderness, Pedal Edema - Neurological Exam Neurological Exam: Alert, Awake, Oriented x3 - Skin Skin Exam: Dry, Warm Assessment and Plan - Assessment and Plan (Free Text) Assessment: Assessment: Acute diverticulitis, no abscess or free air, failed outpatient treatment Morbid obesity Uterine fibroid disease Morbid obesity Hypertension Plan: continue IV antibiotics, On Zosyn on clears PPI on Lovenox surgery and ID following patient Recommend elective outpatient colonoscopy in 6-8 weeks' time when diverticulitis has resolved, discussed with patient. Seen and discussed w/ Dr. Pretty. <Gaby Pretty V - Last Filed: 10/02/17 23:31> Objective - Vital Signs/Intake and Output Vital Signs (last 24 hours): Temp Pulse Resp BP Pulse Ox 98.7 F 72 20 135/89 100 10/02/17 16:30 10/02/17 16:30 10/02/17 16:30 10/02/17 16:30 10/02/17 16:30 Intake and Output: 10/02/17 10/03/17 18:59 06:59 Intake Total 960 Balance 960 - Medications Medications: Current Medications Enoxaparin Sodium (Lovenox) 40 mg SC DAILY [facility] PRN Reason: Protocol Last Admin: 10/02/17 09:32 Dose: 40 mg Sodium Chloride (Sodium Chloride 0.9%) 1,000 mls @ 100 mls/hr IV .Q10H [facility] Last Admin: 10/02/17 20:27 Dose: 100 mls/hr Piperacillin Sod/Tazobactam Sod (Zosyn 3.375 In Ns 100ml) 100 mls @ 200 mls/hr IVPB Q6 [facility] PRN Reason: Protocol Stop: 10/08/17 06:31 Last Admin: 10/02/17 17:03 Dose: 200 mls/hr Losartan Potassium (Cozaar) 50 mg PO DAILY [facility] Last Admin: 10/02/17 09:33 Dose: 50 mg Morphine Sulfate (Morphine) 4 mg IVP Q4H PRN PRN Reason: Pain, moderate (4-7) Last Admin: 10/01/17 21:26 Dose: 4 mg Pantoprazole Sodium (Protonix Ec Tab) 40 mg PO ACB [facility] Last Admin: 10/02/17 12:49 Dose: 40 mg Polyethylene Glycol (Miralax) 17 gm PO DAILY [facility] Last Admin: 10/02/17 09:33 Dose: 17 gm Simethicone (Mylicon Chew Tab) 80 mg PO HS [facility] Last Admin: 10/02/17 21:25 Dose: 80 mg - Labs Labs: 10/02/17 07:00 10/02/17 07:00 PT 15.7 SECONDS (9.4-12.5) H 09/30/17 22:48 INR 1.37 (0.93-1.08) H 09/30/17 22:48 APTT 30.8 Seconds (25.1-36.5) 09/30/17 22:48 Attending/Attestation - Attestation I have personally seen and examined this patient.: Yes I have fully participated in the care of the patient.: Yes I have reviewed all pertinent clinical information, including history, physical exam and plan: Yes Notes (Text): This is an addendum to GI progress report dictated by Jody Jones APN.The patient was seen and examined earlier. Medical records, lab studies, imagings were reviewed. Last 24 hours events reviewed. Agreed with the above treatment plan as outlined in Jody Jones APN's notes the with the addition of the following 10/02/17 23:30
[2017-10-02 19:53] VITALS: TEMP 98.7
[2017-10-03] MEDS: Piperacillin/Tazobact 3.375 gm 100 ML IVPB SCH ×3 (05:12→13:17)
[2017-10-03] MEDS: Pantoprazole 40 mg EC Tab PO SCH ×2 (05:30→09:40)
--- NOTE | 2017-10-03 08:37 | CP.PCM.PN ---
<Mitch Bray Segundo - Last Filed: 10/03/17 08:32> Subjective - Date & Time of Evaluation Date of Evaluation: 10/03/17 Time of Evaluation: 08:32 - Subjective Subjective: General surgery progress note for Dr. Zaragoza Patient seen and examined at bedside. No acute events, had a normal bowel movement at 5A. Patient denies nausea, vomiting, diarrhea, abdominal pain. Patient doing well. Objective - Vital Signs/Intake and Output Vital Signs (last 24 hours): Temp Pulse Resp BP Pulse Ox 98.7 F 72 20 135/89 100 10/02/17 16:30 10/02/17 16:30 10/02/17 16:30 10/02/17 16:30 10/02/17 16:30 Intake and Output: 10/03/17 10/03/17 06:59 18:59 Intake Total 2640 Balance 2640 - Medications Medications: Current Medications Enoxaparin Sodium (Lovenox) 40 mg SC DAILY [facility] PRN Reason: Protocol Last Admin: 10/02/17 09:32 Dose: 40 mg Sodium Chloride (Sodium Chloride 0.9%) 1,000 mls @ 100 mls/hr IV .Q10H [facility] Last Admin: 10/02/17 20:27 Dose: 100 mls/hr Piperacillin Sod/Tazobactam Sod (Zosyn 3.375 In Ns 100ml) 100 mls @ 200 mls/hr IVPB Q6 [facility] PRN Reason: Protocol Stop: 10/08/17 06:31 Last Admin: 10/03/17 05:12 Dose: 200 mls/hr Losartan Potassium (Cozaar) 50 mg PO DAILY [facility] Last Admin: 10/02/17 09:33 Dose: 50 mg Morphine Sulfate (Morphine) 4 mg IVP Q4H PRN PRN Reason: Pain, moderate (4-7) Last Admin: 10/01/17 21:26 Dose: 4 mg Pantoprazole Sodium (Protonix Ec Tab) 40 mg PO ACB [facility] Last Admin: 10/03/17 05:30 Dose: 40 mg Polyethylene Glycol (Miralax) 17 gm PO DAILY [facility] Last Admin: 10/02/17 09:33 Dose: 17 gm Simethicone (Mylicon Chew Tab) 80 mg PO PCHS [facility] Last Admin: 10/02/17 21:25 Dose: 80 mg - Labs Labs: 10/02/17 07:00 10/02/17 07:00 PT 15.7 SECONDS (9.4-12.5) H 09/30/17 22:48 INR 1.37 (0.93-1.08) H 09/30/17 22:48 APTT 30.8 Seconds (25.1-36.5) 09/30/17 22:48 - Constitutional Appears: Well - Head Exam Head Exam: ATRAUMATIC, NORMAL INSPECTION, NORMOCEPHALIC - Eye Exam Eye Exam: EOMI, Normal appearance, PERRL Pupil Exam: NORMAL ACCOMODATION, PERRL - ENT Exam ENT Exam: Mucous Membranes Moist, Normal Exam - Neck Exam Neck Exam: Full ROM, Normal Inspection. absent: Lymphadenopathy - Respiratory Exam Respiratory Exam: Clear to Ausculation Bilateral, NORMAL BREATHING PATTERN - Cardiovascular Exam Cardiovascular Exam: REGULAR RHYTHM, +S1, +S2. absent: Murmur - GI/Abdominal Exam GI & Abdominal Exam: Soft, Normal Bowel Sounds. absent: Tenderness - Extremities Exam Extremities Exam: Full ROM, Normal Capillary Refill, Normal Inspection. absent : Joint Swelling, Pedal Edema - Back Exam Back Exam: NORMAL INSPECTION - Neurological Exam Neurological Exam: Alert, Awake, CN II-XII Intact, Normal Gait, Oriented x3 - Psychiatric Exam Psychiatric exam: Normal Affect, Normal Mood - Skin Skin Exam: Dry, Intact, Normal Color, Warm Assessment and Plan - Assessment and Plan (Free Text) Assessment: 37yo F with possible diverticulitis - Continue IV Abx as per ID - IVF - Strict I&Os - F/u with her GI outpatient - Patient will benefit from elective colonoscopy 6-8wks after symptoms resolve - Pain management and nausea management prn Further recs as per Dr. Zaragoza <Manolo Zaragoza - Last Filed: 10/03/17 11:39> Objective - Vital Signs/Intake and Output Vital Signs (last 24 hours): Temp Pulse Resp BP Pulse Ox 98.7 F 65 18 140/78 98 10/03/17 09:49 10/03/17 09:49 10/03/17 09:49 10/03/17 09:49 10/03/17 09:49 Intake and Output: 10/03/17 10/03/17 06:59 18:59 Intake Total 2640 Balance 2640 - Medications Medications: Current Medications Enoxaparin Sodium (Lovenox) 40 mg SC DAILY [facility] PRN Reason: Protocol Last Admin: 10/03/17 09:39 Dose: 40 mg Sodium Chloride (Sodium Chloride 0.9%) 1,000 mls @ 100 mls/hr IV .Q10H [facility] Last Admin: 10/02/17 20:27 Dose: 100 mls/hr Piperacillin Sod/Tazobactam Sod (Zosyn 3.375 In Ns 100ml) 100 mls @ 200 mls/hr IVPB Q6 [facility] PRN Reason: Protocol Stop: 10/08/17 06:31 Last Admin: 10/03/17 05:12 Dose: 200 mls/hr Losartan Potassium (Cozaar) 50 mg PO DAILY [facility] Last Admin: 10/02/17 09:33 Dose: 50 mg Morphine Sulfate (Morphine) 4 mg IVP Q4H PRN PRN Reason: Pain, moderate (4-7) Last Admin: 10/01/17 21:26 Dose: 4 mg Pantoprazole Sodium (Protonix Ec Tab) 40 mg PO ACB [facility] Last Admin: 10/03/17 09:40 Dose: Not Given Polyethylene Glycol (Miralax) 17 gm PO DAILY [facility] Last Admin: 10/03/17 09:40 Dose: 17 gm Simethicone (Mylicon Chew Tab) 80 mg PO [facility] Last Admin: 10/03/17 09:40 Dose: 80 mg - Labs Labs: 10/02/17 07:00 10/02/17 07:00 PT 15.7 SECONDS (9.4-12.5) H 09/30/17 22:48 INR 1.37 (0.93-1.08) H 09/30/17 22:48 APTT 30.8 Seconds (25.1-36.5) 09/30/17 22:48 Assessment and Plan - Assessment and Plan (Free Text) Assessment: iMPROVING WITH iv aB/fULL lIQUIDS pT WILL NOT STAY 7 DAYS-THREATENS TO SIGN AMA Param PICC/Home IV AB Ella KOENIG FACS
[2017-10-03] MEDS: Enoxaparin 40 mg Syringe SC SCH (09:39)
[2017-10-03] MEDS: Simethicone 80 mg Chewtab PO SCH ×2 (09:40→13:17)
[2017-10-03] MEDS: POLYETHYLENE GLYCOL 3350 17 GM/Dose PACKET PO SCH (09:40)
[2017-10-03 09:50] VITALS: BP 140/78; PULSE 65; RESP 18; O2SAT 98
--- NOTE | 2017-10-03 13:09 | CP.PCM.PN ---
Subjective - Date & Time of Evaluation Date of Evaluation: 10/03/17 Time of Evaluation: 11:35 - Subjective Subjective: Abdominal pain is slowly getting better, no fevers, tolerating liquid diet, now advanced to full liquid diet. Objective - Vital Signs/Intake and Output Vital Signs (last 24 hours): Temp Pulse Resp BP Pulse Ox 98.7 F 65 18 140/78 98 10/03/17 09:49 10/03/17 09:49 10/03/17 09:49 10/03/17 09:49 10/03/17 09:49 Intake and Output: 10/03/17 10/03/17 06:59 18:59 Intake Total 2640 Balance 2640 - Medications Medications: Current Medications Enoxaparin Sodium (Lovenox) 40 mg SC DAILY [facility] PRN Reason: Protocol Last Admin: 10/03/17 09:39 Dose: 40 mg Sodium Chloride (Sodium Chloride 0.9%) 1,000 mls @ 100 mls/hr IV .Q10H [facility] Last Admin: 10/02/17 20:27 Dose: 100 mls/hr Piperacillin Sod/Tazobactam Sod (Zosyn 3.375 In Ns 100ml) 100 mls @ 200 mls/hr IVPB Q6 [facility] PRN Reason: Protocol Stop: 10/08/17 06:31 Last Admin: 10/03/17 05:12 Dose: 200 mls/hr Losartan Potassium (Cozaar) 50 mg PO DAILY [facility] Last Admin: 10/02/17 09:33 Dose: 50 mg Morphine Sulfate (Morphine) 4 mg IVP Q4H PRN PRN Reason: Pain, moderate (4-7) Last Admin: 10/01/17 21:26 Dose: 4 mg Pantoprazole Sodium (Protonix Ec Tab) 40 mg PO ACB [facility] Last Admin: 10/03/17 09:40 Dose: Not Given Polyethylene Glycol (Miralax) 17 gm PO DAILY [facility] Last Admin: 10/03/17 09:40 Dose: 17 gm Simethicone (Mylicon Chew Tab) 80 mg PO PCHS [facility] Last Admin: 10/03/17 09:40 Dose: 80 mg - Labs Labs: 10/02/17 07:00 10/02/17 07:00 PT 15.7 SECONDS (9.4-12.5) H 09/30/17 22:48 INR 1.37 (0.93-1.08) H 09/30/17 22:48 APTT 30.8 Seconds (25.1-36.5) 09/30/17 22:48 - Constitutional Appears: Non-toxic - Head Exam Head Exam: NORMAL INSPECTION - Neck Exam Neck Exam: absent: Meningismus - Respiratory Exam Respiratory Exam: Decreased Breath Sounds. absent: Rales - Cardiovascular Exam Cardiovascular Exam: +S1, +S2 - GI/Abdominal Exam GI & Abdominal Exam: Soft. absent: Tenderness Assessment and Plan - Assessment and Plan (Free Text) Plan: Assessment Severe acute sigmoid diverticulitis obesity with BMI 37 HTN uterine fibroids ovarian cyst Plan continue Zosyn day 3 and will continue to monitor clinical response discussed with GI and Surgery - patient can continue on IV Ertapenem for at least another week with outpatient follow up with GI or surgery
--- NOTE | 2017-10-03 15:35 | PN ---
DATE: 10/02/2017 SUBJECTIVE: A 37-year-old female came in with acute severe diverticulitis, sigmoid colon. Patient seems improving, less pain, does feel tender on exam. She is given IV antibiotic. Patient is afebrile. No nausea. Tolerates liquid diet. Advance diet as tolerated. Patient is currently afebrile. PHYSICAL EXAMINATION: VITAL SIGNS: Temperature 98.6, heart rate 76, blood pressure 121/77, respirations 18, saturation 99%. HEAD AND NECK: Normal. No JVD. No thyromegaly. CHEST: Clear. Good air entry. CARDIAC: First sound and second sound normal. ABDOMEN: Soft. There is some tenderness on deep palpation to the right lower quadrant. Bowel sounds intact. EXTREMITIES: No edema. NEUROLOGIC: Normal. LABORATORY DATA: White count 6.9, hemoglobin 10.3, hematocrit 33.1, and platelets 364. Chemistry: Sodium 145, potassium 3.9, chloride 110, bicarb 25. BUN 9, creatinine 0.9. Patient also had HIV antibodies tested, 4th generation, which was negative. Urinalysis which also was negative. Her PT shows 15.7, INR 1.37, and PTT was normal at 30.8. IMPRESSION AND PLAN: 1. Acute, severe diverticulitis. Continue IV antibiotic as per ID recommendation. She was given Zosyn 3.375 g IV q. 6 hours and also given Protonix 40 IV daily. Continue Cozaar 50 mg daily, continue Lovenox 40 mg subcutaneous daily, MiraLax p.r.n. for constipation. Patient is also getting pain medication 4 mg IV every 4 hours p.r.n. Patient seems doing well. 2. Hypertension. Continue current medications for blood pressure. Monitor her blood pressure, seems stable. Continue current therapy. We will follow up with the consultants. Dietary instructions and diet discussed with the patient and patient was advised to get a colonoscopy after 3 months. Vinnie Monterroso MD
--- NOTE | 2017-10-03 18:41 | CP.PCM.PN ---
Subjective - Date & Time of Evaluation Date of Evaluation: 10/03/17 Time of Evaluation: 12:00 - Subjective Subjective: Seen and examined at the bedside earlier today, chart review. Patient reports improvement of abdominal pain, just feel "sore". Had soft stool no bleeding. Tolerating full liquid diet. No new complaints. at bedside. Objective - Vital Signs/Intake and Output Vital Signs (last 24 hours): Temp Pulse Resp BP Pulse Ox 98.7 F 65 18 140/78 98 10/03/17 09:49 10/03/17 09:49 10/03/17 09:49 10/03/17 09:49 10/03/17 09:49 Intake and Output: 10/03/17 10/03/17 06:59 18:59 Intake Total 2640 1300 Balance 2640 1300 - Labs Labs: 10/02/17 07:00 10/02/17 07:00 PT 15.7 SECONDS (9.4-12.5) H 09/30/17 22:48 INR 1.37 (0.93-1.08) H 09/30/17 22:48 APTT 30.8 Seconds (25.1-36.5) 09/30/17 22:48 - Constitutional Appears: No Acute Distress - Eye Exam Eye Exam: Normal appearance. absent: Scleral icterus - ENT Exam ENT Exam: Mucous Membranes Moist - Neck Exam Neck Exam: Normal Inspection - Respiratory Exam Respiratory Exam: NORMAL BREATHING PATTERN. absent: Respiratory Distress - Cardiovascular Exam Cardiovascular Exam: +S1, +S2 - GI/Abdominal Exam GI & Abdominal Exam: Soft, Normal Bowel Sounds. absent: Guarding, Tenderness, Rebound Additional comments: abdomen obese - Extremities Exam Extremities Exam: absent: Calf Tenderness, Pedal Edema - Neurological Exam Neurological Exam: Alert, Awake, Oriented x3 Assessment and Plan - Assessment and Plan (Free Text) Assessment: Assessment: Improving Acute diverticulitis, no abscess or free air, failed outpatient treatment Morbid obesity Uterine fibroid disease Morbid obesity Hypertension Plan: continue IV antibiotics, On Zosyn on fulls, slowly advance diet as tolerated, discussed with patient low residual diet initially and slowly increase fiber. 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 patient plan for IV antibiotic infusion at home Seen and discussed w/ Dr. Pretty.
--- NOTE | 2017-10-06 19:14 | DS ---
HISTORY OF PRESENT ILLNESS: A 37-year-old female came in with severe sigmoid colon acute diverticulitis. Patient was seen by GI consult, Dr. Pretty; ID consult, Dr. Montemayor. She was given IV Zosyn and Flagyl. Patient did well and was discharged to a low-residue diet. Dietary consult was seen the patient. Patient was going to be given meropenem IV antibiotic once a day as per ID consultations and she will be followed as outpatient. She will need another 7 more days of IV antibiotics and in addition to Flagyl 500 q.8 for another 7 days. Patient has IV line, PICC line and she will be discharged to continue that as an outpatient. PHYSICAL EXAMINATION: VITAL SIGNS: Temperature 98.7, heart rate 65, blood pressure 140/78, respirations 18, saturation 98%. HEAD AND NECK: Normal. No JVD. No thyromegaly. CHEST: Clear. Good air entry. CARDIAC: First sound and second sound are normal. ABDOMEN: Soft, tender in the left lower quadrant. Bowel sounds intact. EXTREMITIES: No edema. NEUROLOGIC: Normal. DISCHARGE DIAGNOSES: 1. Acute severe diverticulitis. 2. Hypertension. 3. Obesity. PLAN: Discharge the patient home. Continue meropenem and Flagyl for a week. Low-residue diet for now and MiraLax p.r.n., Colace 100 b.i.d., and continue Benicar 20 mg p.o. daily. Also, patient advised to watch for a week. No diffuse carbohydrates and follow up in the office within a week. Vinnie Monterroso MD
== END 2017-10-03 18:03 | disposition home or self-care (01) | DRG 392 ==
LOC: ED 21:08 → ERH 10-01 00:16 → 5RSO 10-01 01:51
PROVIDERS: ADMIT Internal Medicine; ATTEND Internal Medicine
PROC: 05H633Z Insertion of Infusion Device into Left Subclavian Vein, Percutaneous Approach (ICD-10-PCS; principal; 2017-10-03)
PROC: B547ZZA Ultrasonography of Left Subclavian Vein, Guidance (ICD-10-PCS; 2017-10-03)
DX: K57.32 Diverticulitis of large intestine without perforation or abscess without bleeding (principal); E66.01 Morbid (severe) obesity due to excess calories; D25.9 Leiomyoma of uterus, unspecified; I10 Essential (primary) hypertension; N83.209 Unspecified ovarian cyst, unspecified side; Z68.37 Body mass index [BMI] 37.0-37.9, adult; Z79.899 Other long term (current) drug therapy; R40.2412 Glasgow coma scale score 13-15, at arrival to emergency department

== ENCOUNTER 2017-12-14 06:44 | Emergency (ER) | payer OTHER ==
[2017-12-14 06:46] VITALS: BMI 37.5
[2017-12-14 07:09] VITALS: RESP 18
--- NOTE | 2017-12-14 07:49 | ED PDOC ---
Arrival/HPI - General Chief Complaint: Upper Extremity Problem/Injury Time Seen by Provider: 12/14/17 07:19 Historian: Patient - History of Present Illness Narrative History of Present Illness (Text): 12/14/17 07:46 Patient is a 37 yo female, pmhx of diverticulitis, pmhx of prior right shoulder injury, presents to the Emergency Department complaining of right sided head, neck and back pain after "a large metal object fell on my head" at a store this morning prior to arrival. Denies bleeding or laceration. Denies loss of consciousness. Denies numbness or weakness. Denies visual symptoms. Denies chest pain or shortness of breath. Reports pain to neck with movements and tightness in her upper back, more right sided. Past Medical History - Infectious Disease Hx of Infectious Diseases: None - Tetanus Immunization Tetanus Immunization: Unknown - Cardiac Hx Cardiac Disorders: Yes Hx Hypertension: Yes Hx Pacemaker: No - Pulmonary Hx Respiratory Disorders: No - Neurological Hx Neurological Disorder: No - HEENT Hx HEENT Disorder: No - Renal Hx Renal Disorder: No - Endocrine/Metabolic Hx Endocrine Disorders: No - Hematological/Oncological Hx Blood Disorders: No Hx Cancer: No - Integumentary Hx Dermatological Disorder: No - Musculoskeletal/Rheumatological Hx Musculoskeletal Disorders: Yes (TORN RIGHT SHOULDER ROTATOR CUFF) Hx Back Pain: Yes Hx Falls: No Hx Herniated Disk: Yes (CERVICAL) Other/Comment: HX OF REPAIR OF ROTATOR CUFF TEAR SPRAIN-RIGHT SHOULDER. HX OF UTERINE FIBROID REMOVED (LAPAROSCOPIC MYOMECTOMY) - Gastrointestinal Hx Gastrointestinal Disorders: Yes Hx Diverticulitis: Yes - Genitourinary/Gynecological Hx Genitourinary Disorders: No Other/Comment: HX OF UTERINE Fibroids (REMOVED) - Psychiatric Hx Psychophysiologic Disorder: No Hx Substance Use: No - Surgical History Hx Mastectomy: No Hx Orthopedic Surgery: Yes (rt shoulder repair(ROTATOR CUFF)) Other/Comment: 1 ovarian cyst-REMOVED. UTERINE Fibriods removed. - Anesthesia Hx Anesthesia: Yes Hx Anesthesia Reactions: No Hx Malignant Hyperthermia: No - Suicidal Assessment Feels Threatened In Home Enviroment: No Family/Social History Family/Social History: Unknown Family HX Smoking Status: Never Smoked Hx Alcohol Use: No Hx Substance Use: No Hx Substance Use Treatment: No Allergies/Home Meds Allergies/Adverse Reactions: Allergies No Known Allergies Allergy (Verified 09/30/17 21:18) Home Medications: Home Meds Medication Instructions Recorded Confirmed Olmesartan Medoxomil [Benicar] 20 mg PO DAILY 11/21/17 11/21/17 Review of Systems - Review of Systems Constitutional: absent: Fatigue, Fevers Eyes: absent: Vision Changes ENT: absent: Hearing Changes Respiratory: absent: SOB Cardiovascular: absent: Chest Pain Gastrointestinal: absent: Abdominal Pain Musculoskeletal: Back Pain, Neck Pain Skin: absent: Rash Neurological: Headache. absent: Dizziness, Focal Weakness Endocrine: absent: Polyuria Hemo/Lymphatic: absent: Easy Bleeding Psychiatric: absent: Depression, Suicidal Ideation Physical Exam Vital Signs Reviewed: Yes Vital Signs Temp Pulse Resp BP Pulse Ox 12/14/17 09:43 98 F 67 18 110/73 98 12/14/17 08:50 67 18 110/73 98 12/14/17 07:05 98.1 F 54 L 18 112/64 99 Temperature: Afebrile Appearance: Positive for: Well-Appearing, Non-Toxic Pain Distress: Mild Mental Status: Positive for: Alert and Oriented X 3 - Systems Exam Head: Present: Normocephalic, Tenderness (mild pain to right posterior scalp with no erythema or laceration). No: Laceration Pupils: Present: PERRL Extroacular Muscles: Present: EOMI Mouth: Present: Moist Mucous Membranes Pharnyx: No: ERYTHEMA Nose (External): Present: Atraumatic Neck: Present: Normal Range of Motion, MIDLINE TENDERNESS. No: Meningeal Signs Respiratory/Chest: Present: Clear to Auscultation. No: Respiratory Distress Cardiovascular: Present: Regular Rate and Rhythm Abdomen: No: Tenderness Back: Present: Other (paraspinal tenderness to right upper thoracic region, no crepitus). No: CVA Tenderness Upper Extremity: Present: Other (pain with ROM of right shoulder, adduction, no erythema or edema, old scar to right shoulder). No: Cyanosis Lower Extremity: No: Edema Neurological: Present: Motor Func Grossly Intact, Normal Sensory Function Skin: Present: Warm. No: Laceration Psychiatric: Present: Alert, Normal Insight, Normal Concentration Medical Decision Making ED Course and Treatment: 12/14/17 07:51 Patient with no severe headache. No skull deformity. No laceration. No loc. Neuro intact with no nausea or vomiting. Lungs clear. There is limitation of ROM of right shoulder however this was present from prior injury, not worse. Given midline neck pain, will obtain cspine xray as well as cxr to evaluate ribs and lung arias. Xrays unremarkable and reviewed with patient. Stressed to patient need for follow-up for any new or persistent symptoms. Will d/c with antiinflammatories. - RAD Interpretation Radiology Orders: 12/14/17 07:28 CERVICAL SPINE >18YR W/OBLIQUE [RAD] Stat 12/14/17 07:29 RIBS RIGHT & PA CHEST [RAD] Stat Disposition/Present on Arrival - Present on Arrival Any Indicators Present on Arrival: No History of DVT/PE: No History of Uncontrolled Diabetes: No Urinary Catheter: No History of Decub. Ulcer: No History Surgical Site Infection Following: None - Disposition Have Diagnosis and Disposition been Completed?: Yes Diagnosis: Head contusion, Neck contusion, Back contusion Disposition: HOME/ ROUTINE Disposition Time: 09:35 Patient Plan: Discharge Condition: GOOD Discharge Instructions (ExitCare): Neck Pain, Closed Head Injury, Upper Back Pain, Contusion (DC) Additional Instructions: For any headaches, nausea, vomiting, any unsteadiness, any visual symptoms, any numbness or tingling, any shortness of breath, any persistent or worsening of any symptoms, get rechecked. Follow-up with your physician in 1-2 days. Prescriptions: Naproxen 250 mg PO BID PRN #10 tablet PRN Reason: Pain, Mild (1-3) Referrals: Suleiman Ugalde MD [Primary Care Provider] - Follow up with primary Forms: [employer] (Irish)
--- NOTE | 2017-12-14 09:38 | RAD ---
PROCEDURE: Radiographs of the Chest and Right Ribs. HISTORY: right back pain COMPARISON: None available. TECHNIQUE: Frontal radiograph of the chest and multiple oblique radiographs of the right ribs were obtained. FINDINGS: RIGHT RIBS: No fracture or focal lesion visualized. LUNGS: Clear. PLEURA: No pneumothorax or pleural fluid. CARDIOVASCULAR: Normal sized heart. No pulmonary vascular congestion. OTHER FINDINGS: None. IMPRESSION: Unremarkable radiographs of the chest and right ribs. No right rib fracture.
--- NOTE | 2017-12-14 09:39 | RAD ---
PROCEDURE: Cervical Spine Radiographs. HISTORY: Pain. COMPARISON: None. FINDINGS: BONES: Alignment maintained. No fracture. Dens Intact. DISC SPACES: Normal. SOFT TISSUES: Normal. No prevertebral soft tissue swelling. OTHER FINDINGS: None. IMPRESSION: Normal cervical spine radiographs
[2017-12-14 09:43] VITALS: BP 110/73; PULSE 67; O2SAT 98
[2017-12-14 09:44] VITALS: TEMP 98
== END 2017-12-14 09:47 | disposition home or self-care (01) ==
LOC: ED 06:44
DX: S00.83XA Contusion of other part of head, initial encounter (principal); S10.93XA Contusion of unspecified part of neck, initial encounter; S20.221A Contusion of right back wall of thorax, initial encounter; W22.8XXA Striking against or struck by other objects, initial encounter; Y92.512 Supermarket, store or market as the place of occurrence of the external cause

== ENCOUNTER 2018-02-01 15:17 | Emergency (ER) | payer OTHER ==
[2018-02-01 15:19] VITALS: BMI 37.5
[2018-02-01 15:48] VITALS: RESP 18; TEMP 98.3
[2018-02-01 16:19] LABS: BASO # 0.03 K/mm3 (0.0-2.0); BASO % 0.4 % (0.0-3.0); EOS # 0.2 (0.0-0.7); EOS % 2.1 % (1.5-5.0); GRAN # 3.4 (1.4-6.5); GRAN % 48.4 % (50.0-68.0); HEMOGLOBIN 11.6 g/dL (12.0-16.0); LYMPH # 2.9 (1.2-3.4); LYMPH % 41.3 % (22.0-35.0); MEAN CELL VOLUME 83.1 fl (80.0-105.0); MEAN CORPUSCULAR HEMOGLOBIN 27.6 pg (25.0-35.0); MEAN CORPUSCULAR HGB CONC 33.1 g/dl (31.0-37.0); MONO # 0.6 (0.1-0.6); MONO % 7.8 % (1.0-6.0); RBC 4.21 10^6/uL (3.5-6.1); RED CELL DISTRIBUTION WIDTH 14.7 % (11.5-14.5)
[2018-02-01 16:26] LABS: INR 1.01 (0.93-1.08); PARTIAL THROMBOPLASTIN TIME 32.1 Seconds (25.1-36.5); PROTHROMBIN TIME 11.5 SECONDS (9.4-12.5)
--- NOTE | 2018-02-01 16:46 | ED PDOC ---
Arrival/HPI - General Chief Complaint: Palpitations Time Seen by Provider: 02/01/18 15:43 Historian: Patient - History of Present Illness Narrative History of Present Illness (Text): 02/01/18 16:43 Patient is a 37 yo female, past medical history of hypertension, diverticulitis , presents to the Emergency Department today stating that approximately 2 hours prior to arrival, while driving, she had sudden onset of "my lower lip was twitching". She denies any associated numbness or swelling, but states she pulled over and felt sensation of palpitations. She also began experiencing that "my left hand started to shake". She denies weakness. Denies chest pain or shortness of breath or pleuritic discomfort. No wheezing described. No trauma. No recent illnesses. No recent new mediations. States she was her normal state of health this morning when she woke up. Denies calf pain or swelling. Past Medical History - Provider Review Nursing Documentation Reviewed: Yes - Infectious Disease Hx of Infectious Diseases: None - Tetanus Immunization Tetanus Immunization: Unknown - Cardiac Hx Cardiac Disorders: Yes Hx Hypertension: Yes Hx Pacemaker: No - Pulmonary Hx Respiratory Disorders: No - Neurological Hx Neurological Disorder: No - HEENT Hx HEENT Disorder: No - Renal Hx Renal Disorder: No - Endocrine/Metabolic Hx Endocrine Disorders: No - Hematological/Oncological Hx Blood Disorders: No Hx Cancer: No - Integumentary Hx Dermatological Disorder: No - Musculoskeletal/Rheumatological Hx Musculoskeletal Disorders: Yes (TORN RIGHT SHOULDER ROTATOR CUFF) Hx Back Pain: Yes Hx Falls: No Hx Herniated Disk: Yes (CERVICAL) Other/Comment: HX OF REPAIR OF ROTATOR CUFF TEAR SPRAIN-RIGHT SHOULDER. HX OF UTERINE FIBROID REMOVED (LAPAROSCOPIC MYOMECTOMY) - Gastrointestinal Hx Gastrointestinal Disorders: Yes Hx Diverticulitis: Yes - Genitourinary/Gynecological Hx Genitourinary Disorders: No Other/Comment: HX OF UTERINE Fibroids (REMOVED) - Psychiatric Hx Psychophysiologic Disorder: No Hx Substance Use: No - Surgical History Hx Mastectomy: No Hx Orthopedic Surgery: Yes (rt shoulder repair(ROTATOR CUFF)) Other/Comment: 1 ovarian cyst-REMOVED. UTERINE Fibriods removed. - Anesthesia Hx Anesthesia: Yes Hx Anesthesia Reactions: No Hx Malignant Hyperthermia: No - Suicidal Assessment Feels Threatened In Home Enviroment: No Family/Social History - Physician Review Nursing Documentation Reviewed: Yes Family/Social History: denies: CAD/[place] Smoking Status: Never Smoked Hx Alcohol Use: No Hx Substance Use: No Hx Substance Use Treatment: No Allergies/Home Meds Allergies/Adverse Reactions: Allergies No Known Allergies Allergy (Verified 02/01/18 15:44) Home Medications: Home Meds Medication Instructions Recorded Confirmed Olmesartan Medoxomil [Benicar] 20 mg PO DAILY 11/21/17 02/01/18 Bisacodyl [Dulcolax] 1 tab PO DAILY 01/12/18 02/01/18 Review of Systems - Review of Systems Constitutional: absent: Fevers Eyes: absent: Vision Changes ENT: absent: Hearing Changes, Sore Throat, Rhinorrhea, Sinus Congestion Respiratory: absent: SOB, Cough Cardiovascular: Palpitations. absent: Chest Pain, Edema, Calf Pain, CONTEH, Orthopnea Gastrointestinal: absent: Abdominal Pain, Nausea, Vomiting Genitourinary Female: absent: Dysuria, Frequency, Urine Output Changes Musculoskeletal: absent: Back Pain, Neck Pain, Joint Swelling Skin: absent: Rash Neurological: Other (twitching to lower lip, left hand tremor, denies numbness or weakness). absent: Headache, Dizziness, Focal Weakness, Gait Changes, Speech Changes, Facial Droop, Disequilibrium Endocrine: absent: Diaphoresis Hemo/Lymphatic: absent: Easy Bleeding Psychiatric: Anxiety. absent: Depression Physical Exam Vital Signs Reviewed: Yes Vital Signs Temp Pulse Resp BP Pulse Ox 02/01/18 19:00 88 18 139/84 98 02/01/18 16:21 75 18 151/90 H 100 02/01/18 15:47 98.3 F 81 18 154/104 H 100 Temperature: Afebrile Blood Pressure: Hypertensive Pulse: Regular Respiratory Rate: Normal Appearance: Positive for: Non-Toxic, Comfortable Pain Distress: Mild Mental Status: Positive for: Alert and Oriented X 3 Finger Stick Blood Glucose: 96 - Systems Exam Head: Present: Atraumatic, Normocephalic Pupils: Present: PERRL Extroacular Muscles: Present: EOMI Conjunctiva: No: Injected Mouth: Present: Moist Mucous Membranes, Normal Lips (no angioedema, no tongue swelling), Normal Tounge. No: Drooling Nose (Internal): Present: Normal Inspection, No Active Bleeding Neck: Present: Normal Range of Motion. No: Meningeal Signs Respiratory/Chest: Present: Clear to Auscultation. No: Respiratory Distress Cardiovascular: Present: Regular Rate and Rhythm, Murmurs Abdomen: Present: Normal Bowel Sounds. No: Tenderness Back: No: CVA Tenderness Upper Extremity: No: Cyanosis, Edema Lower Extremity: No: Edema, CALF TENDERNESS Neurological: Present: GCS=15, CN II-XII Intact, Speech Normal, Motor Func Grossly Intact, Normal Sensory Function, Normal Cerebellar Funct, Norm Deep Tendon Reflexes, Memory Normal, Normal 2Pt Descrimination Skin: Present: Warm Psychiatric: Present: Alert, Normal Insight, Normal Concentration, Anxious Medical Decision Making ED Course and Treatment: 02/01/18 16:53 Patient on initial evaluation in ED has NO facial droop, no slurred speech, no pronator drift, no wheezing, no angioedema, no tremors. She is alert and oriented. She denies headache or chest pain. She is in normal sinus rhtyhm. No allergic reaction noted. No new medications reported. No calf pain or swelling. No hypoxia. No pleuritic pain. 02/01/18 18:20 CT head: FINDINGS: BRAIN: Unremarkable. No hemorrhage. No significant white matter disease. No edema. VENTRICLES: Unremarkable. No ventriculomegaly. BONES/JOINTS: Unremarkable. No acute fracture. SOFT TISSUES: Unremarkable. SINUSES: Unremarkable as visualized. No acute sinusitis. MASTOID AIR CELLS: Unremarkable as visualized. No mastoid effusion. IMPRESSION: No acute findings. 02/01/18 18:20 Chest X-ray: Creator : DR. Velez, Vinnie KOENIG COMPARISON: Chest 12/14/2017 FINDINGS: LUNGS: Poor inspiration with low lung volumes, crowded bronchovascular markings and mild bibasilar atelectasis. PLEURA: No significant pleural effusion identified, no pneumothorax apparent. CARDIOVASCULAR: Heart size upper limits of normal OSSEOUS STRUCTURES: No significant abnormalities. VISUALIZED UPPER ABDOMEN: Normal. OTHER FINDINGS: None. IMPRESSION: Poor inspiration with low lung volumes, crowded bronchovascular markings and mild bibasilar atelectasis. Patient with serial exams has NO neuro deficits. She is alert. She has no pronator drift. No dysmetria. SHE DENIES NUMBNESS OR WEAKNESS AT ANY TIME. SHE DENIES CHEST PAIN OR SHORTNESS OF BREATH AT ANY TIME. No jaw pain. No back pain. No smoking, no calf pain. No prolonged immobilization. NO prolonged travel. EKG compared to previous reveals st t wave changes when compare to previous EKG. I reviewed this in laymen's terms with patient. She denies at any point any chest pain or shortness of breath or numbness. CT results reviewed with patient. I discussed in length with patient for 10 minutes imaging and EKG and lab results as well as limitations of these studies. Based on EKG changes and initial presenting symptoms, I have recommended to patient in laymen's terms that SHE BE ADMITTED TO THE HOSPITAL FOR CARDIAC MONITORING AND SERIAL NEURO EXAMS. [facility] reviewed with patient, however she states "I'm not staying here". I have given her opportunity to ask questions and she is able to express understanding that I am recommending admission to hospital for observation. She remains asymptomatic on re-exam and wishes to go home and states she will see her physician tomorrow. Again, limitations of studies reviewed with patient multiple times. She does state that prior to feeling "lip shaking" and "hand shaking" she was having a discussion on phone with family about a stressful subject. She has had oral potassium and asa given. I have recommended further neuro and med peds follow-up. She denies family history of cardiac disease. She denies history of diabetes. - Lab Interpretations Lab Results: 02/01/18 16:13 02/01/18 16:13 Lab Results 02/01/18 16:26: Urine Color Yellow, Urine Appearance Clear, Urine pH 6.5, Ur Specific [place] 1.020, Urine Protein Negative, Urine Glucose (UA) Negative, Urine Ketones Negative, Urine Blood Small H, Urine Nitrate Negative, Urine Bilirubin Negative, Urine Urobilinogen 0.2, Ur Leukocyte Esterase Negative, Urine RBC 1 - 3, Urine WBC 2 - 5, Ur Epithelial Cells 10 - 12, Urine Bacteria Few, Urine HCG, Qual Negative 02/01/18 16:13: Sodium 140, Potassium 3.4 L, Chloride 103, Carbon Dioxide 27, Anion Gap 14, BUN 18, Creatinine 0.7, Est GFR ( Amer) > 60, Est GFR (Non- Af Amer) > 60, Random Glucose 102, Calcium 9.1, Magnesium 1.7, Total Bilirubin 0.3, AST 21, ALT 27, Alkaline Phosphatase 65, Lactate Dehydrogenase 414, Total Creatine Kinase 108, Troponin I < 0.01, Total Protein 7.8, Albumin 4.0, Globulin 3.8, Albumin/Globulin Ratio 1.1 02/01/18 16:13: PT 11.5, INR 1.01, APTT 32.1 02/01/18 16:13: WBC 7.0, RBC 4.21, Hgb 11.6 L, Hct 35.0 L, MCV 83.1 D, MCH 27.6 , MCHC 33.1, RDW 14.7 H, Plt Count 338, MPV 9.0, Gran % 48.4 L, Lymph % (Auto) 41.3 H, Vance % (Auto) 7.8 H, Eos % (Auto) 2.1, Baso % (Auto) 0.4, Gran # 3.40, Lymph # (Auto) 2.9, Vance # (Auto) 0.6, Eos # (Auto) 0.2, Baso # (Auto) 0.03 02/01/18 16:09: POC Glucose (mg/dL) 96 I have reviewed the lab results: Yes - RAD Interpretation Radiology Orders: 02/01/18 15:58 HEAD W/O CONTRAST [CT] Stat CHEST PORTABLE [RAD] Stat Box Order Person: Radiologist - EKG Interpretation EKG Interpretation (Text): 02/01/18 16:54 EKG at 15:43 normal sinus rhythm rate of [address] abnormality Interpreted by ED Physician: Yes Type: 12 lead EKG - Medication Orders Current Medication Orders: Discontinued Medications Aspirin (Aspirin Chewable) 81 mg PO STAT STA Stop: 02/01/18 18:51 Last Admin: 02/01/18 18:54 Dose: 81 mg Potassium Chloride (K-Dur 20 Meq Er Tab) 20 meq PO STAT STA Stop: 02/01/18 18:51 Last Admin: 02/01/18 18:54 Dose: 20 meq - Scribe Statement The provider has reviewed the documentation as recorded by the Lisbet Billy Provider Scribe Attestation: All medical record entries made by the Scriblouie were at my direction and personally dictated by me. I have reviewed the chart and agree that the record accurately reflects my personal performance of the history, physical exam, medical decision making, and the department course for this patient. I have also personally directed, reviewed, and agree with the discharge instructions and disposition. Disposition/Present on Arrival - Present on Arrival Any Indicators Present on Arrival: No History of DVT/PE: No History of Uncontrolled Diabetes: No Urinary Catheter: No History of Decub. Ulcer: No History Surgical Site Infection Following: None - Disposition Have Diagnosis and Disposition been Completed?: Yes Diagnosis: Lip tremor, Tremor of left hand Disposition: HOME/ ROUTINE Disposition Time: 19:00 Patient Plan: Discharge Condition: GOOD Discharge Instructions (ExitCare): Tremor Additional Instructions: I have discussed with you limitations of CT scans and blood tests in diagnosing stroke and heart attacks/heart disease. I have discussed with you "change" in your EKG when compared to previous visits and what this may represent. I have advised admission to hospital for further neurologic and cardiac evaluation. Risks have been discussed with you regarding evaluation for your heart and brain and going home. Please return immediately if any symptoms return. If you have headaches, any visual symptoms, any chest pain or shortness of breath, any abdominal pain, any shoulder pain, any weakness or numbness to your hand, ANY NEW OR PERSISTENT SYMPTOMS, get rechecked. I recommend immediate follow-up with your physician tomorrow or immediate return for any symptoms. Referrals: Suleiman Ugalde MD [Primary Care Provider] - Follow up with primary Forms: [employer]dgt ([place])
[2018-02-01 16:49] LABS: ALB/GLOB RATIO 1.1 (1.1-1.8); ALT/SGPT 27 U/L (7-56); AST/SGOT 21 U/L (14-36); BLOOD UREA NITROGEN 18 mg/dL (7-21); CALCIUM 9.1 mg/dL (8.4-10.5); GFR AFRICAN-AMERICAN > 60; GFR NON-AFRICAN AMERICAN > 60
[2018-02-01 16:52] LABS: PH,URINE 6.5 (4.7-8.0); URINE BILIRUBIN NEGATIVE (NEGATIVE); URINE BLOOD SMALL (NEGATIVE); URINE GLUCOSE (UA) NEGATIVE (NEGATIVE); URINE LEUKOCYTE ESTERASE NEGATIVE Leu/uL (NEGATIVE); URINE PROTEIN NEGATIVE mg/dL (<30 mg/dL); URINE UROBILINOGEN 0.2 E.U./dL (<1 E.U./dL)
[2018-02-01 16:54] LABS: URINE APPEARANCE CLEAR (CLEAR); URINE COLOR YELLOW (YELLOW)
[2018-02-01 17:01] LABS: TROPONIN I < 0.01 ng/mL
[2018-02-01 17:03] LABS: URINE BACTERIA FEW (NEG)
[2018-02-01 17:04] LABS: HCG,QUALITATIVE URINE NEGATIVE (NEGATIVE)
--- NOTE | 2018-02-01 17:27 | RAD ---
HISTORY: palpitations COMPARISON: Chest 12/14/2017 FINDINGS: LUNGS: Poor inspiration with low lung volumes, crowded bronchovascular markings and mild bibasilar atelectasis. PLEURA: No significant pleural effusion identified, no pneumothorax apparent. CARDIOVASCULAR: Heart size upper limits of normal OSSEOUS STRUCTURES: No significant abnormalities. VISUALIZED UPPER ABDOMEN: Normal. OTHER FINDINGS: None. IMPRESSION: Poor inspiration with low lung volumes, crowded bronchovascular markings and mild bibasilar atelectasis.
[2018-02-01] MEDS ORDERED: Potassium Chloride 20 mEq ER Tab PO STA (18:50)
[2018-02-01 19:00] VITALS: BP 139/84; PULSE 88; O2SAT 98
--- NOTE | 2018-02-02 09:19 | CARD ---
APPROVED REPORT EKG Measurement Heart [id number] NM [id number] <Conclusion> Normal sinus rhythm Nonspecific T wave abnormality Abnormal ECG
--- NOTE | 2018-02-02 09:46 | CT ---
PROCEDURE: CT HEAD WITHOUT CONTRAST. HISTORY: left hand tremors COMPARISON: None available. TECHNIQUE: Axial computed tomography images were obtained through the head/brain without intravenous contrast. Radiation dose: Total exam DLP = mGy-cm. This CT exam was performed using one or more of the following dose reduction techniques: Automated exposure control, adjustment of the mA and/or kV according to patient size, and/or use of iterative reconstruction technique. FINDINGS: HEMORRHAGE: No intracranial hemorrhage. BRAIN: No mass effect or edema. No atrophy or chronic microvascular ischemic changes. VENTRICLES: Unremarkable. No hydrocephalus. CALVARIUM: Unremarkable. PARANASAL SINUSES: Unremarkable as visualized. No significant inflammatory changes. MASTOID AIR CELLS: Unremarkable as visualized. No inflammatory changes. OTHER FINDINGS: None. IMPRESSION: Normal CT of the Head.
== END 2018-02-01 19:22 | disposition home or self-care (01) ==
LOC: ED 15:17
DX: I10 Essential (primary) hypertension (principal)

== ENCOUNTER 2018-02-24 12:10 | Emergency (ER) | payer BC, OTHER ==
[2018-02-24 12:11] VITALS: BMI 37.5
[2018-02-24 12:26] VITALS: O2SAT 99
--- NOTE | 2018-02-24 13:12 | ED PDOC ---
Arrival/HPI - General Chief Complaint: Lower Extremity Problem/Injury Time Seen by Provider: 02/24/18 12:38 - History of Present Illness Narrative History of Present Illness (Text): 02/24/18 13:16 37yo female with no pmhx who present with complaint of left lower leg heaviness and discoloration. States she noted the discoloration this morning and worried that she might have DVT. she denies chest pain, SOB, diaphoresis, recent travel/ surgery, trauma, calf pain, any other complaint. Past Medical History - Provider Review Nursing Documentation Reviewed: Yes - Infectious Disease Hx of Infectious Diseases: None - Tetanus Immunization Tetanus Immunization: Unknown - Cardiac Hx Cardiac Disorders: Yes Hx Hypertension: Yes - Pulmonary Hx Respiratory Disorders: No - Neurological Hx Neurological Disorder: No - HEENT Hx HEENT Disorder: No - Renal Hx Renal Disorder: No - Endocrine/Metabolic Hx Endocrine Disorders: No - Hematological/Oncological Hx Blood Disorders: No Hx Cancer: No - Integumentary Hx Dermatological Disorder: No - Musculoskeletal/Rheumatological Hx Musculoskeletal Disorders: Yes (TORN RIGHT SHOULDER ROTATOR CUFF) Hx Back Pain: Yes Hx Herniated Disk: Yes (CERVICAL) - Gastrointestinal Hx Gastrointestinal Disorders: Yes Hx Diverticulitis: Yes - Genitourinary/Gynecological Hx Genitourinary Disorders: Yes Other/Comment: HX OF UTERINE Fibroids (REMOVED) - Psychiatric Hx Psychophysiologic Disorder: No Hx Substance Use: No - Surgical History Hx Mastectomy: No Hx Orthopedic Surgery: Yes (R SHOULDER) Other/Comment: 1 ovarian cyst-REMOVED. UTERINE Fibriods removed. - Anesthesia Hx Anesthesia: Yes Hx Anesthesia Reactions: No Hx Malignant Hyperthermia: No - Suicidal Assessment Feels Threatened In Home Enviroment: No Family/Social History - Physician Review Nursing Documentation Reviewed: Yes Family/Social History: Unknown Family HX Smoking Status: Never Smoked Hx Alcohol Use: No Hx Substance Use: No Hx Substance Use Treatment: No Allergies/Home Meds Allergies/Adverse Reactions: Allergies No Known Allergies Allergy (Verified 02/24/18 12:21) Home Medications: Home Meds Medication Instructions Recorded Confirmed Olmesartan Medoxomil [Benicar] 20 mg PO DAILY 11/21/17 02/24/18 Review of Systems - Physician Review All systems were reviewed & negative as marked: Yes - Review of Systems Constitutional: Normal Eyes: Normal ENT: Normal Respiratory: Normal Cardiovascular: Normal Gastrointestinal: Normal Genitourinary Female: Normal Musculoskeletal: Arthralgias (Left leg heaviness) Skin: Normal Neurological: Normal Endocrine: Normal Hemo/Lymphatic: Normal Psychiatric: Normal Physical Exam Vital Signs Reviewed: Yes Vital Signs Temp Pulse Resp BP Pulse Ox 02/24/18 13:29 98.7 F 80 18 137/89 99 02/24/18 12:22 98.6 F 77 16 149/90 99 Temperature: Afebrile Blood Pressure: Normal Pulse: Regular Respiratory Rate: Normal Appearance: Positive for: Well-Appearing, Non-Toxic, Comfortable Pain Distress: None Mental Status: Positive for: Alert and Oriented X 3 - Systems Exam Head: Present: Atraumatic, Normocephalic Pupils: Present: PERRL Extroacular Muscles: Present: EOMI Conjunctiva: Present: Normal Mouth: Present: Moist Mucous Membranes Neck: Present: Normal Range of Motion Respiratory/Chest: Present: Clear to Auscultation, Good Air Exchange. No: Respiratory Distress, Accessory Muscle Use Cardiovascular: Present: Regular Rate and Rhythm, Normal S1, S2. No: Murmurs Abdomen: No: Tenderness, Distention, Peritoneal Signs Back: Present: Normal Inspection Upper Extremity: Present: Normal Inspection, Cyanosis, Edema Lower Extremity: Present: Normal Inspection, NORMAL PULSES, Normal ROM, Neurovascularly Intact. No: Edema, CALF TENDERNESS, Richie's Sign, Tenderness, Swelling, Erythema, Deformity, Temperature Abnormalties Neurological: Present: GCS=15, CN II-XII Intact, Speech Normal Skin: Present: Warm, Dry, Normal Color. No: Rashes Psychiatric: Present: Alert, Oriented x 3, Normal Insight, Normal Concentration Medical Decision Making ED Course and Treatment: 02/24/18 13:36 37yo female who present with discoloration on her left lower leg. PT was not in any distress. Her physical exam was benign. Doppler was ordered to r/o DVT Per the US tech preliminary result US was not for DVT Result was DW the pt and she was DC home. - RAD Interpretation Radiology Orders: 02/24/18 12:43 DUPLEX LOWER EXTRM VEIN LEFT [US] Stat Disposition/Present on Arrival - Present on Arrival Any Indicators Present on Arrival: No History of DVT/PE: No History of Uncontrolled Diabetes: No Urinary Catheter: No History of Decub. Ulcer: No History Surgical Site Infection Following: None - Disposition Have Diagnosis and Disposition been Completed?: Yes Diagnosis: [place] Disposition: HOME/ ROUTINE Disposition Time: 13:25 Patient Plan: Discharge Condition: STABLE Additional Instructions: Follow up with your Doctor Return to ED for any new or worsening symptoms Referrals: Suleiman Ugalde MD [Primary Care Provider] - Follow up with primary Forms: [employer] (Mongolian)
[2018-02-24 13:47] VITALS: BP 137/89; PULSE 80; RESP 18; TEMP 98.7
--- NOTE | 2018-02-24 20:06 | US ---
PROCEDURE: Left lower extremity venous US HISTORY: Leg pain and swelling. Evaluate for DVT. PHYSICIAN(S): Kenton Brannon MD. TECHNIQUE: Duplex sonography and color-flow Doppler with graded compression were used to evaluate the deep venous system of the left lower extremity. The exam is somewhat limited by body habitus and edema. FINDINGS: The visualized deep venous system of the left lower extremity is sonographically normal and compressible. Normal wave forms and augmentation are seen. There is no sonographic evidence for deep venous thrombosis in the visualized segments of the left lower extremity. IMPRESSION: 1. No sonographic evidence for deep venous thrombosis in the visualized segments of the left lower extremity.
== END 2018-02-24 13:29 | disposition home or self-care (01) ==
LOC: ED 12:10
DX: D69.2 Other nonthrombocytopenic purpura (principal); I10 Essential (primary) hypertension

== ENCOUNTER 2018-11-05 10:34 | Emergency (ER) | payer OTHER ==
[2018-11-05 10:34] VITALS: BMI 37.5
[2018-11-05 11:23] VITALS: BP 141/90; PULSE 79; RESP 18; TEMP 98.5; O2SAT 99
--- NOTE | 2018-11-05 11:49 | ED PDOC ---
Arrival/HPI - General Chief Complaint: Headache Time Seen by Provider: 11/05/18 11:19 Historian: Patient - History of Present Illness Narrative History of Present Illness (Text): 11/05/18 11:35 38 y/o F with pmh of shoulder surgery (2015) presents complaining of pain on crown of head, ear pain, chronic neck pain and chronic shoulder pain x2 days. Patient reports that after applying a hair product 2 days ago, a pain on the crown of her headache arose. Patient took Aleve for it yesterday but offered no relief. Patient recalls having chronic shoulder pain and neck pain since her shoulder surgery in 2016. Patient denies any headache, nausea, diarrhea, vomiting or any other complaints. Time/Duration: < week Symptom Onset: Sudden Symptom Course: Unchanged Activities at Onset: Light Context: Home Past Medical History - Infectious Disease Hx of Infectious Diseases: None - Tetanus Immunization Tetanus Immunization: Unknown - Cardiac Hx Cardiac Disorders: Yes Hx Hypertension: Yes Hx Pacemaker: No - Pulmonary Hx Respiratory Disorders: No - Neurological Hx Neurological Disorder: No - HEENT Hx HEENT Disorder: No - Renal Hx Renal Disorder: No - Endocrine/Metabolic Hx Endocrine Disorders: No - Hematological/Oncological Hx Blood Disorders: No - Integumentary Hx Dermatological Disorder: No - Musculoskeletal/Rheumatological Hx Musculoskeletal Disorders: Yes Hx Back Pain: Yes Hx Falls: No Hx Herniated Disk: Yes (CERVICAL) Other/Comment: HX: RIGHT ROTATOR CUFF TEAR - Gastrointestinal Hx Gastrointestinal Disorders: Yes Hx Diverticulitis: Yes - Genitourinary/Gynecological Hx Genitourinary Disorders: Yes Other/Comment: HX: UTERINE FIBROIDS - Psychiatric Hx Psychophysiologic Disorder: No Hx Substance Use: No - Surgical History Hx Mastectomy: No Hx Musculoskeletal Surgery: Yes Other/Comment: HX: 1 ovarian cyst-REMOVED. HX:UTERINE Fibriod removed. HX: REPAIR RIGHT ROTATOR CUFF TEAR - Anesthesia Hx Anesthesia: Yes Hx Anesthesia Reactions: No Hx Malignant Hyperthermia: No - Suicidal Assessment Feels Threatened In Home Enviroment: No Family/Social History Family/Social History: No Known Family HX Smoking Status: Never Smoked Hx Alcohol Use: No Hx Substance Use: No Hx Substance Use Treatment: No Allergies/Home Meds Allergies/Adverse Reactions: Allergies No Known Allergies Allergy (Verified 11/05/18 11:23) Home Medications: Home Meds Medication Instructions Recorded Confirmed Olmesartan Medoxomil [Benicar] 20 mg PO DAILY 11/21/17 11/05/18 Review of Systems - Physician Review All systems were reviewed & negative as marked: Yes - Review of Systems Constitutional: Normal. absent: Fevers Eyes: Normal ENT: Normal. absent: Sore Throat, Rhinorrhea Respiratory: Normal Cardiovascular: Normal Gastrointestinal: Normal. absent: Diarrhea, Nausea, Vomiting Genitourinary Female: Normal Musculoskeletal: Neck Pain, Other (shoulder pain) Skin: Normal Neurological: Normal. absent: Headache Endocrine: Normal Hemo/Lymphatic: Normal Psychiatric: Normal Physical Exam Vital Signs Reviewed: Yes Vital Signs Temp Pulse Resp BP Pulse Ox 11/05/18 11:05 98.5 F 79 18 141/90 99 Temperature: Afebrile Blood Pressure: Normal Pulse: Regular Respiratory Rate: Normal Appearance: Positive for: Well-Appearing, Non-Toxic, Comfortable Pain Distress: Mild Mental Status: Positive for: Alert and Oriented X 3 - Systems Exam Head: Present: Atraumatic, Normocephalic Pupils: Present: PERRL Extroacular Muscles: Present: EOMI Conjunctiva: Present: Normal Mouth: Present: Moist Mucous Membranes Neck: Present: Normal Range of Motion Respiratory/Chest: Present: Clear to Auscultation, Good Air Exchange. No: Respiratory Distress, Accessory Muscle Use Cardiovascular: Present: Regular Rate and Rhythm, Normal S1, S2. No: Murmurs Abdomen: No: Tenderness, Distention, Peritoneal Signs Back: Present: Normal Inspection Upper Extremity: Present: Normal Inspection. No: Cyanosis, Edema Lower Extremity: Present: Normal Inspection. No: Edema Neurological: Present: GCS=15, Speech Normal Skin: Present: Warm, Dry, Normal Color. No: Rashes Psychiatric: Present: Alert, Oriented x 3, Normal Insight, Normal Concentration Medical Decision Making ED Course and Treatment: 11/05/18 11:50 Impression: 38 y/o F presents complaining of pain on crown of head and ear pain x2 days Plan: -- Reassess and disposition Prior Visits: Notes and results from previous visits were reviewed. Progress Notes: - Scribe Statement The provider has reviewed the documentation as recorded by the Lisbet Isaacs All medical record entries made by the Gianlucaiblouie were at my direction and personally dictated by me. I have reviewed the chart and agree that the record accurately reflects my personal performance of the history, physical exam, medical decision making, and the department course for this patient. I have also personally directed, reviewed, and agree with the discharge instructions and di sposition. Disposition/Present on Arrival - Present on Arrival Any Indicators Present on Arrival: No History of DVT/PE: No History of Uncontrolled Diabetes: No Urinary Catheter: No History of Decub. Ulcer: No History Surgical Site Infection Following: None - Disposition Have Diagnosis and Disposition been Completed?: Yes Diagnosis: Pain of scalp, Neck pain Disposition: HOME/ ROUTINE Disposition Time: 12:05 Patient Plan: Discharge Condition: GOOD Discharge Instructions (ExitCare): Headache, Adult, Generalized Neck Pain (DC) Prescriptions: Cyclobenzaprine [Cyclobenzaprine HCl] 10 mg PO TID #15 tab Ibuprofen [Motrin] 600 mg PO Q6 #20 tab Referrals: [facility] at [facility] [place] [Outside] - Follow up with primary [facility] at [facility] [Outside] - Follow up with primary [facility] at [place] [Outside] - Follow up with primary Forms: [employer] (Macedonian)
== END 2018-11-05 12:05 | disposition home or self-care (01) ==
LOC: ED 10:34
DX: R51 Headache (principal); M54.2 Cervicalgia; I10 Essential (primary) hypertension